=== PATIENT | male | born 1950 | race Caucasian/White ===

== ENCOUNTER → 2020-11-23 08:00 | Outpatient (REF) | payer MEDICARE, SELFPAY ==
--- NOTE | 2020-11-23 08:30 | CA_ITS ---
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 Normal LV systolic and diastolic function 2. Mildly dilated left atrium 3. Normal cardiac valvular Doppler 4. Normal RV systolic pressure 5. No pericardial effusion Findings Left Ventricle Normal left ventricular size, thickness, and systolic function. The visually estimated ejection fraction is between 60-65%. Spectral Doppler is indicative of a normal filling pattern. Right Ventricle Normal right ventricular cavity size and systolic function. Atria The left atrium is mildly dilated. There is lipomatous hypertrophy of the interatrial septum. There is no evidence of interatrial shunt. The right atrium is normal in size. Aortic Valve There is mild calcification of the aortic valve. There is no aortic valve stenosis. There is no aortic valve regurgitation. Mitral Valve There is mild anterior and posterior mitral leaflet thickening. There is mild mitral annular calcification. There is trace mitral valve regurgitation. There is no mitral valve stenosis. Pulmonic Valve The pulmonic valve was not well visualized. Tricuspid Valve Likely normal tricuspid valve structure and function. There is mild tricuspid valve regurgitation. The right ventricular systolic pressure is normal. The right ventricular systolic pressure is 29 mmHg. Normal right atrial pressure. There is no evidence of pulmonary hypertension. Great Vessels All visible segments of the aorta are normal in size. The pulmonary artery was not well visualized. Venous The inferior vena cava is normal in size and collapses greater than 50% with inspiration. Pericardium/Pleural There is no evidence of pericardial effusion. Prior Study Comparison No significant change compared to prior study dated: 06/10/2019. Measurements 2D Linear Measurements IVSd: 1.01 0.6-0.9/0.6-1.0 cm LVIDd: 5.15 3.9-5.3/4.2-5.9 cm LVIDd Index: 2.42 2.4-3.2/2.2-3.1 cm/m2 LVIDs: 3.86 2.0-3.6 cm LVPWd: 1.01 0.7-1.1 cm Ao Root: 3.00 2.1-3.5 cm LA Diam: 3.90 2.7-3.8/3.0-4.0 cm LAIDs Index: 1.83 1.5-2.3 cm/m2 LV Mass: 241.29 67-162/88-224 g LV Mass Index: 113.28 43-95/49-115 g/m2 LVOT Diam: 2.00 3.0+(-)1.3 cm 2D Systolic Function EF 4C: 64.90 >55% EF 2C: 64.10 >55% EF BiP: 64.10 >55% Mitral Valve MV Pk E: 0.85 MV PK A: 0.64 MV Decel Time: 409.00 E/A: 1.30 E'Lateral: 11.30 E'Medial: 8.05 E/E' Med: 10.50 E/E' Lat: 7.50 PHT: 120.00 MVA PHT: 1.83 Decel [place]: 2.07 Aortic Valve AoV Pk Abbe: 1.68 AoV Mn Abbe: 1.14 AoV VTI: 0.43 AoV Pk Grad: 11.00 Aov Mn Grad: 6.00 NIDHI Cont.VTI: 2.12 LVOT LVOT Pk Abbe: 1.15 LVOT Mn Abbe: 0.75 LVOT VTI: 0.29 LVOT Pk Grad: 5.00 LVOT Mn Grad: 3.00 LVOT Diam: 2.00 LVOT Area: 3.14 Diastolic Function MV Pk E: 0.85 MV Pk A: 0.64 E/A: 1.30 E'Medial: 8.05 E/E' Med: 10.50 E' Laterial: 11.30 E/E' Lat: 7.50 Tricuspid Valve TR Pk Abbe: 2.31 TR Pk Grad: 21.00 RA Press: 8.00 RVSP: 29.00 Great Vessels Aorta Ao Root-2D: 3.00 2.0-3.7 cm Ao Asc: 3.20 2.1-3.4 cm Ao Arch: 2.50 Updated in Other Vendor System with Status of Final Navid Babb MD electronically signed on 11/24/2020 9:19:43 AM with status of Final
== END ==
LOC: HO.CARD 08:00
PROVIDERS: Visit Provider Internal Medicine
DX: I20.8 Other forms of angina pectoris (principal); I35.9 Nonrheumatic aortic valve disorder, unspecified; Z95.5 Presence of coronary angioplasty implant and graft
CPT/HCPCS: 93306

== ENCOUNTER → 2020-12-10 07:56 | Outpatient (BNVA) | payer MEDICARE, SELFPAY | PROVIDERS: Visit Provider Internal Medicine | DX: I25.10 Atherosclerotic heart disease of native coronary artery without angina pectoris (principal); I10 Essential (primary) hypertension; R00.1 Bradycardia, unspecified; E78.5 Hyperlipidemia, unspecified | CPT/HCPCS: 93005; 99212 ==

== ENCOUNTER 2021-02-11 10:17 | Outpatient (REF) | payer MEDICARE, SELFPAY ==
[2021-02-11 10:21] LABS: MANUAL DIFF FLAG NO
[2021-02-11 10:49] LABS: Basophils Percent Auto 0.4 % (0-2); Eosinophils Absolute Auto 0.3 X10*3/uL (0.0-0.4); Eosinophils Percent Auto 3.4 % (0-4); Hemoglobin 14.9 g/dl (14.0-18.0); Imm Gran Abs Auto 0.01 X10*3/uL (0.00-0.03); Imm Gran Pct Auto 0.1 % (0.0-0.4); Lymphocytes Absolute Auto 2.8 X10*3/uL (1.2-4.9); Lymphocytes Percent Auto 33.5 % (20-40); Mean Corpuscular HGB Conc 33.1 g/dl (31.0-36.0); Mean Corpuscular Hemoglobin 30.8 pg (27.0-33.0); Mean Platelet Volume 10.8 fL (9.4-12.4); Monocytes Percent Auto 11.7 % (2-11); Neutrophils Absolute Auto 4.3 X10*3/uL (2.0-8.3); Neutrophils Percent Auto 50.9 % (45-73); Platelet Count 178 X10*3/uL (160-400); Red Blood Count 4.84 X10*6/uL (4.60-5.80); Red Cell Distribution Width 13.5 % (11.0-16.0); White Blood Count 8.4 X10*3/uL (4.8-10.8)
[2021-02-11 11:24] LABS: Alanine Aminotransferase 26 U/L (0-40); Albumin Level 3.9 g/dL (3.5-5.0); Alkaline Phosphatase 102 U/L (39-117); Anion Gap 13 (12-20); Aspartate Amino Transferase 21 U/L (5-37); Bilirubin Total 1.6 mg/dL (0.0-1.0); Blood Urea Nitrogen 18 mg/dL (9-16); Calcium 8.5 mg/dL (8.4-10.2); Carbon Dioxide 25 mmol/L (22-29); Chloride 108 mmol/L (96-108); Cholesterol 134 mg/dL; Estimated Glomerular Filt Rate > 60; Glucose Random 99 mg/dL (60-115); HDL Cholesterol 43 mg/dL; LDL Cholesterol Calculated 76 mg/dl; Potassium 4.2 mmol/L (3.3-5.1); Sodium 142 mmol/L (135-145); Total Protein 6.3 g/dL (6.5-8.0); Triglycerides 78 mg/dL
[2021-02-11 11:46] LABS: Prostate Specific Antigen 0.23 ng/mL (<0.05-4.0); Thyroid Stimulating Hormone 1.94 uIU/mL (0.32-4.0)
[2021-02-11 14:28] LABS: Glucose Urine UA NEG (NEG); Leukocyte Esterase Urine NEG (NEG); Nitrite Urine NEG (NEG); Urine Blood NEG (NEG); Urine Ketones NEG (NEG); Urine Protein NEG (NEG-TRACE)
[2021-02-11 14:43] LABS: Appearance Urine CLEAR; Color Urine YELLOW
== END 2021-02-11 10:18 | disposition home or self-care (01) ==
LOC: HO.LNP 10:17
PROVIDERS: Visit Provider Internal Medicine
DX: Z00.00 Encounter for general adult medical examination without abnormal findings (principal); Z12.5 Encounter for screening for malignant neoplasm of prostate; E78.00 Pure hypercholesterolemia, unspecified; N52.01 Erectile dysfunction due to arterial insufficiency; Z95.5 Presence of coronary angioplasty implant and graft
CPT/HCPCS: 80053; 80061; 81003; 84153; 84443; 85025

== ENCOUNTER → 2021-02-23 13:04 | Outpatient (BNVA) | payer MEDICARE, SELFPAY | PROVIDERS: Visit Provider Internal Medicine | DX: I25.10 Atherosclerotic heart disease of native coronary artery without angina pectoris (principal); I10 Essential (primary) hypertension; R00.1 Bradycardia, unspecified; E78.5 Hyperlipidemia, unspecified; N53.9 Unspecified male sexual dysfunction | CPT/HCPCS: Q3014 ==

== ENCOUNTER 2021-06-03 10:17 | Outpatient (REF) | payer MEDICARE, SELFPAY ==
[2021-06-03 10:21] LABS: MANUAL DIFF FLAG NO
[2021-06-03 10:49] LABS: Basophils Percent Auto 0.2 % (0-2); Eosinophils Absolute Auto 0.3 X10*3/uL (0.0-0.4); Eosinophils Percent Auto 2.8 % (0-4); Hematocrit 45.7 % (42-52); Hemoglobin 14.9 g/dl (14.0-18.0); Imm Gran Abs Auto 0.01 X10*3/uL (0.00-0.03); Imm Gran Pct Auto 0.1 % (0.0-0.4); Lymphocytes Absolute Auto 3.8 X10*3/uL (1.2-4.9); Lymphocytes Percent Auto 41.1 % (20-40); Mean Corpuscular HGB Conc 32.6 g/dl (31.0-36.0); Mean Corpuscular Hemoglobin 30.5 pg (27.0-33.0); Mean Corpuscular Volume 93.5 fL (80-98); Mean Platelet Volume 10.4 fL (9.4-12.4); Monocytes Percent Auto 10.9 % (2-11); Neutrophils Absolute Auto 4.1 X10*3/uL (2.0-8.3); Neutrophils Percent Auto 44.9 % (45-73); Platelet Count 180 X10*3/uL (160-400); Red Blood Count 4.89 X10*6/uL (4.60-5.80); Red Cell Distribution Width 13.7 % (11.0-16.0); White Blood Count 9.1 X10*3/uL (4.8-10.8)
[2021-06-03 11:00] LABS: Alanine Aminotransferase 16 U/L (0-40); Alkaline Phosphatase 112 U/L (39-117); Anion Gap 10 (12-20); Aspartate Amino Transferase 19 U/L (5-37); Bilirubin Total 1.5 mg/dL (0.0-1.0); Blood Urea Nitrogen 19 mg/dL (9-16); Calcium 9.1 mg/dL (8.4-10.2); Carbon Dioxide 28 mmol/L (22-29); Chloride 106 mmol/L (96-108); Cholesterol 162 mg/dL; Estimated Glomerular Filt Rate > 60; Glucose Fasting 107 mg/dL (60-99); HDL Cholesterol 44 mg/dL; LDL Cholesterol Calculated 93 mg/dl; Potassium 4.3 mmol/L (3.3-5.1); Sodium 140 mmol/L (135-145); Total Protein 6.5 g/dL (6.5-8.0); Triglycerides 126 mg/dL
[2021-06-03 11:20] LABS: PSA,Total (Free>4and<10) 0.26 ng/mL (0.00-4.00)
[2021-06-03 11:49] LABS: Reflex LDLD? No
== END 2021-06-03 10:18 | disposition home or self-care (01) ==
LOC: HO.LNP 10:17
PROVIDERS: Visit Provider Internal Medicine
DX: Z00.00 Encounter for general adult medical examination without abnormal findings (principal); Z12.5 Encounter for screening for malignant neoplasm of prostate; E78.00 Pure hypercholesterolemia, unspecified
CPT/HCPCS: 80053; 80061; 84153; 85025

== ENCOUNTER 2021-06-08 10:31 | Outpatient (REF) | payer MEDICARE, SELFPAY ==
[2021-06-08 11:05] LABS: Glucose Urine UA NEG (NEG); Leukocyte Esterase Urine NEG (NEG); Nitrite Urine NEG (NEG); Specific Gravity - Urine 1.015 (1.005-1.025); Urine Blood NEG (NEG); Urine Ketones NEG (NEG); Urine Protein NEG (NEG-TRACE)
[2021-06-08 11:11] LABS: Appearance Urine CLEAR; Color Urine YELLOW
== END 2021-06-08 10:32 | disposition home or self-care (01) ==
LOC: HO.LNP 10:31
PROVIDERS: Visit Provider Internal Medicine
DX: Z00.00 Encounter for general adult medical examination without abnormal findings (principal); E78.00 Pure hypercholesterolemia, unspecified
CPT/HCPCS: 81003

== ENCOUNTER → 2021-06-16 08:07 | Outpatient (BNVA) | payer MEDICARE, SELFPAY | PROVIDERS: Referring Provider Internal Medicine; Visit Provider Internal Medicine | DX: I25.10 Atherosclerotic heart disease of native coronary artery without angina pectoris (principal); I10 Essential (primary) hypertension; E78.5 Hyperlipidemia, unspecified; R00.1 Bradycardia, unspecified | CPT/HCPCS: 99212 ==

== ENCOUNTER 2021-09-18 17:41 | Emergency (ER) | payer MEDICARE, SELFPAY ==
--- NOTE | ~2021-09-18 | XR_ITS ---
EXAMINATION: XR RIBS, RIGHT CLINICAL INFORMATION: Fall. COMPARISON: CTA of the chest dated from 02/08/2020. TECHNIQUE: 3 views of the right ribs were obtained. FINDINGS: Lungs are clear. No consolidation, pneumothorax, or pleural effusion. The cardiomediastinal silhouette and pulmonary vasculature are normal. Mildly displaced rib fracture in the posterolateral aspect of the right 9th rib. Chronic appearing right-sided eighth and 10th rib fractures. XR/XR ribs RT min 3V w CXR1V IMPRESSION: Mildly displaced rib fracture in the right ninth rib of uncertain age. Correlate for tenderness at this site. Additional right-sided rib fractures involving the eighth and 10th ribs demonstrate callus formation suggesting a subacute to chronic age.
[2021-09-18 17:45] VITALS: BP 149/82; PULSE 81; RESP 19; TEMP 36.6; O2SAT 97; BMI 31.0
--- NOTE | 2021-09-18 19:50 | ED_ITS ---
HPI - Fall General Chief Complaint: Fall Stated Complaint: Fall Time Seen by Provider: 09/18/21 19:42 Source: patient Mode of arrival: ambulatory Limitations: no limitations History of Present Illness HPI Narrative: Patient comes emergency room complaining of rib pain. Approximately 8 hours ago, patient was hiking, states he fell backwards, rolled over a few drugs. Patient was able to walk down the hill, drove couple of hours from [place], came to the emergency room. Patient states that he did not hit his head, did not lose consciousness, patient is not on blood thinners. Patient denies chest pain or shortness of breath, nonlocalized pain. Related Data Home Medications Medication Instructions Recorded Confirmed aspirin 81 mg tablet,delayed 81 mg PO DAILY 12/10/20 06/16/21 release nitroglycerin 0.4 mg sublingual 0.4 mg SUBLINGUAL Q5M PRN 02/23/21 06/16/21 tablet Previous Rx's Medication Instructions Recorded isosorbide mononitrate 30 mg 30 mg PO DAILY 90 Days #90 tab 01/27/21 tablet,extended release 24 hr atorvastatin 80 mg tablet 80 mg PO DAILY 90 Days #90 tab 07/20/21 metoprolol succinate 25 mg 25 mg PO DAILY 90 Days #90 tab 07/20/21 tablet,extended release 24 hr oxycodone 5 mg tablet 5 mg PO TID PRN #10 tab 09/18/21 Allergies Allergy/AdvReac Type Severity Reaction Status Date / Time Sulfa (Sulfonamide Allergy Unknown HIVES Verified 06/16/21 08:20 Antibiotics) [SULFA (SULFONAMIDE ANTIBIOTICS)] Review of Systems Review of Systems: Constitutional : No Weight loss, No Fever, No Chills, No Night Sweats, No Fatigue, No Malaise ENT/Mouth : No Hearing loss, No Ear Pain, No Nasal Congestion, No Sinus Pain, No Hoarseness, No sore throat, No Rhinorrhea, No Swallowing Difficulty Eyes: No Eye Pain, No Swelling, No Redness, No Foreign Body, No Discharge, No Vision Changes Cardiovascular : No Chest Pain, No SOB, No Dyspnea on Exertion, No Orthopnea, No Edema, No Palpitations Respiratory : No Cough, No Sputum, No Wheezing, No Smoke Exposure, No Dyspnea Gastrointestinal : No Nausea, No Vomiting, No Diarrhea, No Constipation, No abdominal Pain, No Hematochezia, No Melena Genitourinary : no irregular bleeding, No Dysuria, No Urinary Frequency, No Hematuria, No Urinary Incontinence, No Urgency, No Flank Pain, No Urinary Flow Changes, No Hesitancy Musculoskeletal : Complaining of rib pain in the right side, No Myalgias, No Joint Swelling Skin : No Skin Lesions, No rash Neuro : No Weakness, No Numbness, No Paresthesias, No Loss of Consciousness, No Dizziness, No Headache Psych : No Anxiety/Panic, No Depression, No SI/HI/AH/VH, No Social Issues, Heme/Lymph: No Bruising, No Bleeding,No Lymphadenopathy Endocrine : No Polyuria, No Polydipsia, No Temperature Intolerance [facility] Past Medical History Medical History Atherosclerotic cardiovascular disease Coronary arteriosclerosis Essential hypertension Other and unspecified hyperlipidemia Sinus bradycardia Surgical History History of appendectomy History of cardiac catheterization (~01/03/20) History of cholecystectomy History of tonsillectomy Family History Family History Father No problems noted. Mother No problems noted. Social History Social History (Updated 06/16/21 @ 08:31 by BRANDYN Lara) Patient Tobacco Use Status: Never used Tobacco Advance Directives: No Advance Directives Information Provided: No Physical Exam Vital Signs: Vital Signs: Last Vital Signs Temp 98 F 09/18/21 17:45 Pulse 81 09/18/21 17:45 Resp 19 09/18/21 17:45 BP 149/82 H 09/18/21 17:45 Pulse Ox 97 09/18/21 17:45 Body Mass Index 31.0 Const: Other: Appearance: Alert. Oriented X3. No acute distress. Eyes: Pupils equal, round and reactive to light. ENT: Pharynx normal. Neck: Normal inspection. Neck supple. No lymph nodes noted. No crepitus CVS: Normal heart rate and rhythm. Pulses normal. Normal S1 and S2 Respiratory: No respiratory distress. Breath sounds normal. No Wheezing. No rales Abdomen: Soft and nontender. No rigidity. No distention. Back lower rib pain on the right side and flank side Skin: Skin warm and dry. Normal skin color. Normal skin turgor. Extremities: No lower extremity edema. No lower extremity edema. No Lacerations. No Rash Neuro: Oriented X 3. No motor deficit. No sensory deficit. Moving all exter mities. No slurred speech. Course Course Course Narrative: I discussed with the patient that at least he has 1 new rib fracture, to rib fractures unknown they are new or not. Patient was given 1 dose of oxycodone, patient instructed to follow-up with his primary care physician. MDM - Fall Imaging Data Chest x-ray: Radiologist's impression: FINDINGS: Lungs are clear. No consolidation, pneumothorax, or pleural effusion. The cardiomediastinal silhouette and pulmonary vasculature are normal. Mildly displaced rib fracture in the posterolateral aspect of the right 9th rib. Chronic appearing right-sided eighth and 10th rib fractures. XR/XR ribs RT min 3V w CXR1V IMPRESSION: Mildly displaced rib fracture in the right ninth rib of uncertain age. Correlate for tenderness at this site. Additional right-sided rib fractures involving the eighth and 10th ribs demonstrate callus formation suggesting a subacute to chronic age. ? Discharge Plan Discharge Clinical Impression: Fracture, ribs Qualifiers: Encounter type: initial encounter Fracture type: closed Laterality: right Qualified Code(s): S22.41XA - Multiple fractures of ribs, right side, initial encounter for closed fracture Patient Disposition: Home, Self-Care Instructions: Rib Fracture (ED) Additional Instructions: Please follow-up with your primary care physician tomorrow. If you have any worsening or new symptoms, please return to the emergency room or call 911 Prescriptions: New oxycodone 5 mg tablet 5 mg PO TID PRN (Reason: pain) Qty: 10 RF: 0 No Action isosorbide mononitrate 30 mg tablet extended release 24 hr 30 mg PO DAILY 90 Days Qty: 90 RF: 3 atorvastatin 80 mg tablet 80 mg PO DAILY 90 Days Qty: 90 RF: 2 metoprolol succinate 25 mg tablet extended release 24 hr 25 mg PO DAILY 90 Days Qty: 90 RF: 3 aspirin 81 mg tablet,delayed release (DR/EC) 81 mg PO DAILY RF: 0 nitroglycerin 0.4 mg tablet, sublingual 0.4 mg sublingual Q5M PRNRF: 0
[2021-09-18] MEDS: oxyCODONE HCl Immed Release 5 MG TABLET PO (19:55)
== END 2021-09-18 20:08 | disposition home or self-care (01) ==
PROVIDERS: Emergency Provider Emergency Medicine; PCP Internal Medicine
DX: S22.41XA Multiple fractures of ribs, right side, initial encounter for closed fracture (principal); R07.81 Pleurodynia; W17.81XA Fall down embankment (hill), initial encounter; Y93.01 Activity, walking, marching and hiking; Y92.821 Forest as the place of occurrence of the external cause; Y99.9 Unspecified external cause status; Z79.82 Long term (current) use of aspirin; Z79.899 Other long term (current) drug therapy
CPT/HCPCS: 71101; 99283

== ENCOUNTER 2021-09-28 11:00 | Outpatient (REF) | payer MEDICARE, SELFPAY ==
--- NOTE | ~2021-09-28 | XR_ITS ---
EXAMINATION: XR RIBS, RIGHT CLINICAL INFORMATION: Closed fracture of right ribs. COMPARISON: Right RIBS 09/18/2021 TECHNIQUE: Frontal view of chest. 3 oblique views of the right ribs. FINDINGS: Lungs are clear. No consolidation, pneumothorax, or pleural effusion. The cardiomediastinal silhouette and pulmonary vasculature are normal. Displaced fracture of the right ninth rib was seen on the prior study of 09/18/2021. This fracture is healing. There is osseous callus formation around the fracture and partial endosteal union. There is no new displaced fracture. There are old healed fractures of the anterior right sixth, seventh, eighth and 10th ribs Surgical clips at the right quadrant of abdomen. Multilevel degenerative spondylosis spine. Spur of the inferior right glenoid at the glenohumeral joint of the shoulder. XR/XR ribs RT min 3V w CXR1V IMPRESSION: Healing fracture of the right ninth rib.
== END 2021-09-28 11:01 | disposition home or self-care (01) ==
LOC: HO.XRAY 11:00
PROVIDERS: PCP Internal Medicine; Visit Provider Internal Medicine
DX: S22.41XD Multiple fractures of ribs, right side, subsequent encounter for fracture with routine healing (principal)
CPT/HCPCS: 71101

== ENCOUNTER → 2021-12-27 07:58 | Outpatient (BNVA) | payer MEDICARE, SELFPAY | PROVIDERS: PCP Internal Medicine; Referring Provider Internal Medicine; Visit Provider Internal Medicine | DX: I25.10 Atherosclerotic heart disease of native coronary artery without angina pectoris (principal); I10 Essential (primary) hypertension; R00.1 Bradycardia, unspecified; E78.5 Hyperlipidemia, unspecified | CPT/HCPCS: 93005; 99212 ==

== ENCOUNTER 2022-06-03 10:55 | Outpatient (REF) | payer MEDICARE, SELFPAY ==
[2022-06-03 10:58] LABS: MANUAL DIFF FLAG NO
[2022-06-03 11:05] LABS: Basophils Percent Auto 0.1 % (0-2); Eosinophils Absolute Auto 0.3 X10*3/uL (0.0-0.4); Eosinophils Percent Auto 3.4 % (0-4); Hematocrit 43.9 % (42.0-52.0); Hemoglobin 14.4 g/dl (14.0-18.0); Imm Gran Abs Auto 0.02 X10*3/uL (0.00-0.03); Imm Gran Pct Auto 0.2 % (0.0-0.4); Lymphocytes Absolute Auto 2.8 X10*3/uL (1.2-4.9); Lymphocytes Percent Auto 31.6 % (20-40); Mean Corpuscular HGB Conc 32.8 g/dl (31.0-36.0); Mean Corpuscular Hemoglobin 30.3 pg (27.0-33.0); Mean Corpuscular Volume 92.2 fL (80.0-98.0); Mean Platelet Volume 10.6 fL (9.4-12.4); Monocytes Percent Auto 11.1 % (2-11); Neutrophils Absolute Auto 4.7 x10*3/uL (2.0-8.3); Neutrophils Percent Auto 53.6 % (45-73); Platelet Count 188 X10*3/uL (160-400); Red Blood Count 4.76 X10*6/uL (4.60-5.80); Red Cell Distribution Width 13.5 % (11.0-16.0); White Blood Count 8.8 X10*3/uL (4.8-10.8)
[2022-06-03 11:11] LABS: Appearance Urine CLEAR; Color Urine YELLOW; Glucose Urine UA NEG (NEG); Leukocyte Esterase Urine NEG (NEG); Nitrite Urine NEG (NEG); Specific Gravity - Urine 1.015 (1.005-1.025); Urine Blood NEG (NEG); Urine Ketones NEG (NEG); Urine Protein NEG (NEG-TRACE)
[2022-06-03 11:57] LABS: Alanine Aminotransferase 17 U/L (0-40); Albumin Level 3.9 g/dL (3.5-5.0); Alkaline Phosphatase 104 U/L (39-117); Anion Gap 12 (12-20); Aspartate Amino Transferase 21 U/L (5-37); Bilirubin Total 1.8 mg/dL (0.0-1.0); Blood Urea Nitrogen 18 mg/dL (9-16); Calcium 8.7 mg/dL (8.4-10.2); Carbon Dioxide 26 mmol/L (22-29); Chloride 105 mmol/L (96-108); Cholesterol 152 mg/dL; Estimated Glomerular Filt Rate > 60; Glucose Fasting 99 mg/dL (60-99); HDL Cholesterol 43 mg/dL; LDL Cholesterol Calculated 84 mg/dl; Potassium 4.2 mmol/L (3.3-5.1); Sodium 139 mmol/L (135-145); Total Protein 6.2 g/dL (6.5-8.0); Triglycerides 129 mg/dL
[2022-06-03 12:03] LABS: Amorphous Sediment Urine 3+ /LPF; RBC Urine 0 /HPF (0); Squamous Epithelial Cell Urine 1+ /LPF; WBC Urine 0 /HPF (0-4)
[2022-06-03 12:07] LABS: PSA,Total (Free>4and<10) 0.21 ng/mL (0.00-4.00)
== END 2022-06-03 10:56 | disposition home or self-care (01) ==
LOC: HO.LNP 10:55
PROVIDERS: Visit Provider Internal Medicine
DX: Z00.00 Encounter for general adult medical examination without abnormal findings (principal); E78.00 Pure hypercholesterolemia, unspecified; Z12.5 Encounter for screening for malignant neoplasm of prostate
CPT/HCPCS: 80053; 80061; 81001; 84153; 85025

== ENCOUNTER → 2022-06-27 08:25 | Outpatient (BNVA) | payer MEDICARE, SELFPAY | PROVIDERS: PCP Internal Medicine; Referring Provider Internal Medicine; Visit Provider Internal Medicine | DX: I25.10 Atherosclerotic heart disease of native coronary artery without angina pectoris (principal); R00.1 Bradycardia, unspecified; I10 Essential (primary) hypertension; E78.5 Hyperlipidemia, unspecified; Z79.899 Other long term (current) drug therapy | CPT/HCPCS: 99212 ==

== ENCOUNTER 2022-12-08 11:06 | Outpatient (REF) | payer MEDICARE, SELFPAY ==
[2022-12-08 11:31] LABS: Alanine Aminotransferase 28 U/L (0-40); Albumin Level 3.9 g/dL (3.5-5.0); Alkaline Phosphatase 118 U/L (39-117); Aspartate Amino Transferase 25 U/L (5-37); Bilirubin Direct 0.3 mg/dL (0.0-0.5); Bilirubin Total 1.3 mg/dL (0.0-1.0); Cholesterol 170 mg/dL; HDL Cholesterol 48 mg/dL; LDL Cholesterol Calculated 97 mg/dl; Total Protein 6.3 g/dL (6.5-8.0); Triglycerides 125 mg/dL
[2022-12-08 13:49] LABS: Reflex LDLD? No
== END 2022-12-08 11:07 | disposition home or self-care (01) ==
LOC: HO.LNP 11:06
PROVIDERS: Visit Provider Internal Medicine
DX: E78.00 Pure hypercholesterolemia, unspecified (principal)
CPT/HCPCS: 80061; 80076

== ENCOUNTER → 2022-12-27 08:25 | Outpatient (BNVA) | payer MEDICARE, SELFPAY | PROVIDERS: PCP Internal Medicine; Referring Provider Internal Medicine; Visit Provider Internal Medicine | DX: I25.10 Atherosclerotic heart disease of native coronary artery without angina pectoris (principal); I10 Essential (primary) hypertension; E78.5 Hyperlipidemia, unspecified | CPT/HCPCS: 93005; 99212 ==

== ENCOUNTER 2023-02-14 10:54 | Day surgery (SDC) | payer MEDICARE, SELFPAY ==
[2023-02-14 11:07] VITALS: BMI 31.7
[2023-02-14 11:24] VITALS: BP 155/83; PULSE 65; RESP 15; TEMP 36.6; O2SAT 96
[2023-02-14] MEDS: Lactated Ringers 1,000 ML 50 ML IVCONT (11:27)
--- NOTE | 2023-02-14 11:34 | HO.ANESPROP2 ---
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 Mother No problems noted. Family history of problems with anesthesia: No Surgical History Surgical History (Updated 02/14/23 @ 11:07 by Ingrid Cooper RN) History of appendectomy History of cardiac catheterization (~01/03/20) History of cholecystectomy History of tonsillectomy Hx of mastoidectomy History of Problems with Anesthesia: No Social History Social History (Updated 12/27/22 @ 08:56 by BRANDYN Webber) Alcohol intake: never Patient Tobacco Use Status: Never used Tobacco Use of substances other than those prescribed or required for medical reasons: Yes Substance Use Frequency: Daily Are you DNR?: No Advance Directives: No Advance Directives Information Provided: Yes Meds Allergies Allergy/AdvReac Type Severity Reaction Status Date / Time Sulfa (Sulfonamide Allergy Unknown HIVES Verified 02/14/23 11:07 Antibiotics) [SULFA (SULFONAMIDE ANTIBIOTICS)] Active Medications: Current Medications Lactated Ringer's (Lr) 1,000 mls @ 50 mls/hr IVCONT .Q20H IDA Last Admin: 02/14/23 11:27 Dose: 50 mls/hr Home Medications Medication Instructions Recorded Confirmed Last Taken Type aspirin 81 mg tablet,delayed 81 mg PO DAILY 12/10/20 02/14/23 02/10/23 History release Exam Exam Date and Time: February 14, 2023 1134 Height,Weight and Vital Signs: Height 5 ft 9 in Weight 97.522 kg Last Vital Signs Temp 97.8 F 02/14/23 11:24 Pulse 65 02/14/23 11:24 Resp 15 02/14/23 11:24 BP 155/83 H 02/14/23 11:24 Pulse Ox 96 02/14/23 11:24 O2 Del Method Room Air 02/14/23 11:24 Airway Mallampati Class: II TM Dist: >3cm Neck ROM: Limited Heart: rrr Lungs: cta Assessment and Plan Assessment Anesthesia Assessment: Anesthesia Plan Discussed and Chart Reviewed Final Anesthetic Review Family History of Problems with Anesthesia: No History of Problems with Anesthesia: No NPO: Yes ASA Class: III Final Preanesthetic Review: No Changes in Pt Med Stat, Meds/Allgs Chart Reviewed, Consent Obtained/Reviewed and Anes Risks/Benef Reviewed Patient Risk: Intermediate Procedure Risk: Low Anesthetic Plan Anesthetic Plan: MAC: Disposition: Standard PACU
--- NOTE | 2023-02-14 11:54 | MHC.SHP ---
Pre-Procedural Eval Section A Date of Service: 02/14/23 The patient is an INPATIENT: No Changes since office visit: No Cold of Flu in the past 2 weeks, No New Medical Problems, No Changes in Medication and No Patient answered all questions The History & Physical has been completed within 30 days and I have reviewed it.: Yes Section B Chief Complaint: Screening Allergies: Allergies Allergy/AdvReac Type Severity Reaction Status Date / Time Sulfa (Sulfonamide Allergy Unknown HIVES Verified 02/14/23 11:07 Antibiotics) [SULFA (SULFONAMIDE ANTIBIOTICS)] Plan I have reviewed the history and physical and performed a pertinent physical examination on my patient. No changes have occurred unless specified. Time Spent With Patient Time: Total time managing care of this patient today ____ minutes.
--- NOTE | 2023-02-14 12:23 | P.BOP_ITS ---
Brief Operative Note Date of Service: 02/14/23 Pre-op diagnosis: screening Post-op diagnosis: same Procedure: colonoscopy Surgeon: Stephen Peña Anesthesia: MAC Was an Boiler Room Operator used for this Procedure?: No Estimated blood loss (mL): 0 Pathology: none sent Condition: stable Disposition: PACU
[2023-02-14 12:25] VITALS: BP 93/60; PULSE 73; RESP 16; TEMP 36.6; O2SAT 95
[2023-02-14 12:40] VITALS: BP 137/72; PULSE 60; RESP 16; TEMP 36.5; O2SAT 98
--- NOTE | 2023-02-14 12:54 | OP_ITS ---
DATE OF SERVICE: 02/14/2023 SURGEON: Stephen Peña MD INDICATIONS: Colon cancer screening. PREOPERATIVE DIAGNOSIS: POSTOPERATIVE DIAGNOSIS: PROCEDURE PERFORMED: Colonoscopy to the terminal ileum. ESTIMATED BLOOD LOSS: COMPLICATIONS: ANESTHESIA: Monitored anesthesia care. ASSISTANTS: SPECIMENS: DESCRIPTION OF PROCEDURE: A history and physical was performed. The risks and benefits of the procedure were explained to the patient. Informed consent was obtained. The patient was placed in a left lateral decubitus position. A digital rectal exam was performed and was found to be normal. The Olympus pediatric video colonoscope was introduced into the rectum and advanced to the cecum without difficulty. The cecum was identified by transillumination, palpation, and identification of ileocecal valve. Examination was performed. The scope was removed. He tolerated the procedure well and was returned to recovery area in stable condition. FINDINGS: The terminal ileum was examined and appeared normal. The visualized colonic mucosa was normal. The quality of the prep was good. No polyps were identified. Retroflexed examination showed some small internal hemorrhoids. IMPRESSION: Normal screening colonoscopy. RECOMMENDATION: 1. Follow up as needed. 2. Repeat colonoscopy could be considered in 10 years, but it is optional based on age. MD CONSTANZA Charles/ANJALI / [id number]
== END 2023-02-14 13:53 | disposition home or self-care (01) ==
PROVIDERS: PCP Internal Medicine; Visit Provider Internal Medicine Gastroenterology
PROC: 0DJD8ZZ Inspection of Lower Intestinal Tract, Via Natural or Artificial Opening Endoscopic (ICD-10-PCS; CPT 45378; principal; 2023-02-14 12:00)
DX: Z12.11 Encounter for screening for malignant neoplasm of colon (principal); K64.8 Other hemorrhoids; I25.10 Atherosclerotic heart disease of native coronary artery without angina pectoris; Z95.5 Presence of coronary angioplasty implant and graft; E78.00 Pure hypercholesterolemia, unspecified; R00.1 Bradycardia, unspecified; Z79.899 Other long term (current) drug therapy; Z79.82 Long term (current) use of aspirin; I10 Essential (primary) hypertension
CPT/HCPCS: G0121

== ENCOUNTER 2023-06-06 11:06 | Outpatient (REF) | payer MEDICARE, SELFPAY ==
[2023-06-06 11:09] LABS: MANUAL DIFF FLAG NO
[2023-06-06 11:13] LABS: Basophils Percent Auto 0.2 % (0-2); Eosinophils Absolute Auto 0.3 X10*3/uL (0.0-0.4); Eosinophils Percent Auto 3.5 % (0-4); Hematocrit 47.1 % (42.0-52.0); Hemoglobin 15.4 g/dl (14.0-18.0); Imm Gran Abs Auto 0.02 X10*3/uL (0.00-0.03); Imm Gran Pct Auto 0.2 % (0.0-0.4); Lymphocytes Percent Auto 33.9 % (20-40); Mean Corpuscular HGB Conc 32.7 g/dl (31.0-36.0); Mean Corpuscular Hemoglobin 30.7 pg (27.0-33.0); Mean Corpuscular Volume 93.8 fL (80.0-98.0); Mean Platelet Volume 10.8 fL (9.4-12.4); Monocytes Absolute Auto 0.9 X10*3/uL (0.1-1.2); Monocytes Percent Auto 10.3 % (2-11); Neutrophils Absolute Auto 4.6 x10*3/uL (2.0-8.3); Neutrophils Percent Auto 51.9 % (45-73); Platelet Count 186 X10*3/uL (160-400); Red Blood Count 5.02 X10*6/uL (4.60-5.80); Red Cell Distribution Width 13.4 % (11.0-16.0); White Blood Count 8.8 X10*3/uL (4.8-10.8)
[2023-06-06 11:14] LABS: Appearance Urine Clear; Color Urine Yellow; Glucose Urine UA Negative (Negative); Leukocyte Esterase Urine Negative (Negative); Nitrite Urine Negative (Negative); Urine Blood Negative (Negative); Urine Ketones Negative (Negative); Urine Protein Negative (Neg-Trace)
[2023-06-06 11:16] LABS: Bacteria Urine None Seen (None Seen); Hyaline Casts Urine 0-2 /LPF (0-2); RBC Urine 0-2 /HPF (0-2); Squamous Epithelial Cell Urine 0-2 /HPF (0-2); WBC Urine 0-5 /HPF (0-5)
[2023-06-06 11:30] LABS: Alanine Aminotransferase 23 U/L (0-40); Albumin Level 3.8 g/dL (3.5-5.0); Alkaline Phosphatase 95 U/L (39-117); Anion Gap 9 (12-20); Aspartate Amino Transferase 28 U/L (5-37); Bilirubin Total 1.2 mg/dL (0.0-1.0); Blood Urea Nitrogen 17 mg/dL (9-16); Calcium 9.2 mg/dL (8.4-10.2); Carbon Dioxide 28 mmol/L (22-29); Chloride 109 mmol/L (96-108); Cholesterol 132 mg/dL; Estimated Glomerular Filt Rate > 60; Glucose Fasting 119 mg/dL (60-99); HDL Cholesterol 42 mg/dL; LDL Cholesterol Calculated 74 mg/dl; Potassium 4.4 mmol/L (3.3-5.1); Sodium 142 mmol/L (135-145); Total Protein 6.5 g/dL (6.5-8.0); Triglycerides 83 mg/dL
[2023-06-06 11:49] LABS: PSA,Total (Free>4and<10) 0.23 ng/mL (0.00-4.00)
== END 2023-06-06 11:07 | disposition home or self-care (01) ==
LOC: HO.LNP 11:06
PROVIDERS: Visit Provider Internal Medicine
DX: Z00.00 Encounter for general adult medical examination without abnormal findings (principal); Z12.5 Encounter for screening for malignant neoplasm of prostate; E78.00 Pure hypercholesterolemia, unspecified
CPT/HCPCS: 80053; 80061; 81001; 84153; 85025

== ENCOUNTER 2023-12-15 11:04 | Outpatient (REF) | payer MEDICARE, SELFPAY ==
[2023-12-15 11:26] LABS: Alanine Aminotransferase 23 U/L (0-40); Albumin Level 3.8 g/dL (3.5-5.0); Alkaline Phosphatase 90 U/L (39-117); Aspartate Amino Transferase 27 U/L (5-37); Bilirubin Direct 0.4 mg/dL (0.0-0.5); Bilirubin Total 1.1 mg/dL (0.0-1.0); Cholesterol 126 mg/dL (<200); HDL Cholesterol 43 mg/dL (>40); LDL Cholesterol Calculated 66 mg/dL (<100); Total Protein 6.7 g/dL (6.5-8.0); Triglycerides 87 mg/dL (<150)
[2023-12-15 11:42] LABS: Reflex LDLD? No
== END 2023-12-15 11:05 | disposition home or self-care (01) ==
LOC: HO.LNP 11:04
PROVIDERS: Visit Provider Internal Medicine
DX: E78.00 Pure hypercholesterolemia, unspecified (principal)
CPT/HCPCS: 80061; 80076

== ENCOUNTER 2024-01-04 08:27 | Outpatient (AMB) | payer MEDICARE, SELFPAY ==
--- NOTE | 2024-01-04 08:43 | A.OFFVIS_ITS ---
Intake Vital Signs 01/04/24 08:44 Height 5 ft 9 in Weight 222 lb 3.615 oz BMI 32.8 BP 110/62 Blood Pressure Location Lt brachial Position Sitting Pulse 54 Pulse Source Pulse Oximeter Pulse Oximetry (%) 96 Oxygen Delivery Method Room Air Intake Visit Reasons: 1 year follow up Intake Note: Pt presents to the office today for a 1 year follow up with EKG Allergies Sulfa (Sulfonamide Antibiotics) [SULFA (SULFONAMIDE ANTIBIOTICS)] Allergy (Unknown, Verified 01/04/24 08:46) HIVES Medication List - Last Reconciled 01/04/24 by Yg Manuel MD aspirin 81 mg PO DAILY atorvastatin 80 mg PO DAILY 90 days ezetimibe 10 mg PO DAILY isosorbide mononitrate ER 30 mg PO DAILY 90 days metoprolol succinate ER 25 mg PO DAILY 90 days HPI HPI Comments History of Present Illness Details Gee returns for follow up regarding coronary artery disease. History of LAD stenting. Per patient, he is doing quite well. No issues like angina or shortness of breath or in fact any cardiac symptoms at all. He states he is feeling great. [facility] Medical History Elevated cholesterol Sinus bradycardia Other and unspecified hyperlipidemia Essential hypertension Atherosclerotic cardiovascular disease Coronary arteriosclerosis Surgical History Hx of mastoidectomy History of cholecystectomy History of appendectomy History of tonsillectomy History of cardiac catheterization (~01/03/20) Family History Father No problems noted. Mother No problems noted. Social History Alcohol intake: never Patient Tobacco Use Status: Never used Tobacco Review of Systems Const All systems reviewed & are unremarkable except as noted in HPI and below Reports as per HPI and Reports no additional complaints Eyes Reports as per HPI and Denies no additional complaints ENT Denies no additional complaints and Reports as per HPI Card Denies as per HPI, Denies no additional complaints, Denies acrocyanosis, Denies chest pain, Denies chest pain at rest, Denies chest pain with activity, Denies diaphoresis, Denies syncope, Denies rapid heart rate, Denies pedal edema, Denies edema, Denies irregular heart rhythm, Denies claudication, Denies leg ulcers, Denies leg edema, Denies lightheadedness, Denies radiating jaw, neck or arm pain, Denies palpitations, Denies dyspnea, Denies dyspnea on exertion, Denies orthopnea, Denies paroxysmal nocturnal dyspnea, Denies slow heart rate and Denies other Resp Denies dyspnea and Denies dyspnea on exertion GI Reports as per HPI and Denies no additional complaints Reports no additional complaints and Reports as per HPI Musc Reports no additional complaints and Reports as per HPI Skin/Breast Reports system reviewed and no additional complaints, except as documented Neuro Denies syncope Psych Reports no additional complaints and Reports as per HPI Endo Denies palpitations Colt/Lymph Reports no additional complaints and Reports as per HPI Aller/Immun Reports no additional complaints and Reports as per HPI Physical Exam Vital Signs: Last Vital Signs Pulse 54 01/04/24 08:44 BP 110/62 01/04/24 08:44 Pulse Ox 96 01/04/24 08:44 Oxygen Delivery Method Room Air 01/04/24 08:44 BMI result Body Mass Index 32.8 Const General: comfortable and no acute distress Orientation/consciousness: patient oriented x3 HEENT Other: Unremarkable Head: Yes normal to inspection Neck Neck: Yes normal visual inspection Chest Chest palpation & inspection: normal inspection of the chest Resp Auscultation: clear to auscultation bilaterally Cardio Palpation: normal PMI Heart sounds: S1 normal heart sound present, S2 normal heart sound present, no gallops, no murmurs and no rubs GI Palpation (GI): Soft to palpation Back/Spine/Pelvis Other: unremarkable Skin General skin exam: no rashes or lesions noted Neuro General: patient oriented x3 Extrem General: Yes normal to inspection Psych Mental Status: mental status grossly normal Office Procedures EKG Details: EKG with sinus bradycardia 53/Min; cannot exclude old inferior infarct; [place]. [id number], Complete Assessment & Plan Assessment & Plan (1) Atherosclerotic cardiovascular disease: Code(s): I25.10 - Atherosclerotic heart disease of [place] coronary artery without angina pectoris (2) Essential hypertension: Code(s): I10 - Essential (primary) hypertension (3) Other and unspecified hyperlipidemia: Code(s): E78.5 - Hyperlipidemia, unspecified Plan Cardiac catheterization 12/2019- mid LAD 70% stenosis, IFR positive, status post PCI; prox LAD 50% stenosis; circumflex - mild luminal irregularities; RCA- severe diffuse disease with distal subtotal occlusion and [id number] collaterals to PLV. Ramus - 70% ostial stenosis. Echocardiogram- 12/2020-normal LVEF, 60-65%; no significant valvular findings or other abnormalities. Overall, continue treatment for stable coronary disease. Clinically, completely asymptomatic. Continue aspirin, beta-blockers, nitrates, statins, Zetia. Cholesterol seems well controlled. Blood pressure is also stable. Continue active healthy lifestyle. Follow-up in 1 year. He will call with any interim concerns. Coding Level of Care Code Est Pt Level 4 (16634) Diagnoses Atherosclerotic cardiovascular disease I25.10 Essential hypertension I10 Other and unspecified hyperlipidemia E78.5 CPT Codes EKG - CPT: 14750-[id number], Complete ([id number])
[2024-01-04 08:44] VITALS: BP 110/62; PULSE 54; O2SAT 96; BMI 32.8
== END 2024-01-04 09:10 | disposition home or self-care (01) ==
PROVIDERS: PCP Internal Medicine; Visit Provider Internal Medicine
DX: I25.10 Atherosclerotic heart disease of native coronary artery without angina pectoris (principal); I10 Essential (primary) hypertension; E78.5 Hyperlipidemia, unspecified
CPT/HCPCS: 93010; 99214

== ENCOUNTER → 2024-01-04 08:27 | Outpatient (BNVA) | payer MEDICARE, SELFPAY | PROVIDERS: PCP Internal Medicine; Visit Provider Internal Medicine | DX: I25.10 Atherosclerotic heart disease of native coronary artery without angina pectoris (principal); I10 Essential (primary) hypertension; E78.5 Hyperlipidemia, unspecified | CPT/HCPCS: 93005; 99212 ==

== ENCOUNTER 2024-06-10 10:50 | Outpatient (REF) | payer MEDICARE, SELFPAY ==
[2024-06-10 10:54] LABS: MANUAL DIFF FLAG NO
[2024-06-10 11:45] LABS: Appearance Urine Clear; Basophils Percent Auto 0.3 % (0-2); Color Urine Yellow; Eosinophils Absolute Auto 0.4 X10*3/uL (0.0-0.4); Eosinophils Percent Auto 3.9 % (0-4); Glucose Urine UA Negative (Negative); Hematocrit 45.5 % (42.0-52.0); Hemoglobin 15.1 g/dl (14.0-18.0); Imm Gran Abs Auto 0.01 X10*3/uL (0.00-0.03); Imm Gran Pct Auto 0.1 % (0.0-0.4); Leukocyte Esterase Urine Negative (Negative); Lymphocytes Absolute Auto 3.5 X10*3/uL (1.2-4.9); Lymphocytes Percent Auto 38.3 % (20-40); Mean Corpuscular HGB Conc 33.2 g/dl (31.0-36.0); Mean Corpuscular Hemoglobin 30.9 pg (27.0-33.0); Mean Platelet Volume 11.3 fL (9.4-12.4); Monocytes Percent Auto 10.6 % (2-11); Neutrophils Absolute Auto 4.3 x10*3/uL (2.0-8.3); Neutrophils Percent Auto 46.8 % (45-73); Nitrite Urine Negative (Negative); PH 6.5 (5.0-9.0); Platelet Count 185 X10*3/uL (160-400); Red Blood Count 4.89 X10*6/uL (4.60-5.80); Red Cell Distribution Width 13.6 % (11.0-16.0); Urine Blood Negative (Negative); Urine Ketones Negative (Negative); Urine Protein Negative (Neg-Trace); White Blood Count 9.1 X10*3/uL (4.8-10.8)
[2024-06-10 11:49] LABS: Bacteria Urine None Seen (None Seen); Hyaline Casts Urine 0-2 /LPF (0-2); RBC Urine 0-2 /HPF (0-2); Squamous Epithelial Cell Urine 0-2 /HPF (0-2); WBC Urine 0-5 /HPF (0-5)
[2024-06-10 12:17] LABS: Alanine Aminotransferase 25 U/L (0-40); Alkaline Phosphatase 92 U/L (39-117); Anion Gap 9 (12-20); Aspartate Amino Transferase 28 U/L (5-37); Bilirubin Total 1.9 mg/dL (0.0-1.0); Blood Urea Nitrogen 18 mg/dL (9-16); Calcium 9.4 mg/dL (8.4-10.2); Carbon Dioxide 27 mmol/L (22-29); Chloride 108 mmol/L (96-108); Cholesterol 132 mg/dL (<200); Estimated Glomerular Filt Rate > 60; Glucose Fasting 114 mg/dL (60-99); HDL Cholesterol 46 mg/dL (>40); LDL Cholesterol Calculated 71 mg/dL (<100); PSA,Total (Free>4and<10) 0.37 ng/mL (0.00-4.00); Potassium 4.4 mmol/L (3.3-5.1); Sodium 140 mmol/L (135-145); Total Protein 6.7 g/dL (6.5-8.0); Triglycerides 78 mg/dL (<150)
== END 2024-06-10 10:51 | disposition home or self-care (01) ==
LOC: HO.LNP 10:50
PROVIDERS: Visit Provider Internal Medicine
DX: E78.00 Pure hypercholesterolemia, unspecified (principal); Z12.5 Encounter for screening for malignant neoplasm of prostate
CPT/HCPCS: 80053; 80061; 81001; 84153; 85025

== ENCOUNTER 2024-12-01 18:54 | Emergency (ER) | payer MEDICARE, SELFPAY ==
--- NOTE | ~2024-12-01 | CT_ITS ---
CLINICAL HISTORY: fall CT head without contrast Comparison: None Findings: No intra-axial mass, midline shift, hydrocephalus, or acute hemorrhage. No significant atrophy-like change or white matter disease. The visualized paranasal sinuses and mastoid air cells are normal. Right mastoidectomy changes The orbits are unremarkable. There is no acute fracture. IMPRESSION: 1. No acute intracranial findings specifically, no acute intracranial hemorrhage. This document has been electronically signed by: Radha Robledo MD on 12/01/2024 21:01:12
--- NOTE | ~2024-12-01 | CT_ITS ---
CLINICAL HISTORY: left sided rib pain post fall CT chest without contrast Comparison: None Findings: The heart size is normal. The visualized thyroid and mediastinum are unremarkable. The lungs are clear. The upper abdomen is unremarkable. Acute nondisplaced fracture of the left lateral 6th rib. Chronic healed fractures of the right lateral 6th and 7th ribs. IMPRESSION: Acute nondisplaced fracture of the left lateral 6th rib. Chronic healed fractures of the right lateral 6th and 7th ribs. This document has been electronically signed by: Radha Robledo MD on 12/01/2024 20:58:11
--- NOTE | ~2024-12-01 | CT_ITS ---
CLINICAL HISTORY: fall CT cervical spine without contrast Comparison: None Findings: Normal vertebral body alignment. Moderate multilevel spondylosis with disc space narrowing, endplate sclerosis, osteophytosis, and facet arthropathy. No acute fractures or dislocations. Visualized intracranial contents are unremarkable. Soft tissues of the neck are normal. No consolidation or effusion at the lung apices. IMPRESSION: No acute findings. Moderate multilevel spondylosis. This document has been electronically signed by: Radha Robledo MD on 12/01/2024 20:50:00
[2024-12-01 18:59] VITALS: BP 119/93; PULSE 61; RESP 18; TEMP 37.1; O2SAT 98; BMI 32.5
--- NOTE | 2024-12-01 19:01 | ED_ITS ---
HPI - General Adult General Chief complaint: Fall Stated complaint: fall left side pain Time Seen by Provider: 12/01/24 20:35 Source: patient Mode of arrival: ambulatory Limitations: no limitations History of Present Illness ED Provider: Gina oJrge PA-C HPI narrative: Patient is a 74 year old assigned male at with a history of CAD and HTN presenting to the emergency department today with left sided rib pain after a fall. Patient states that he was walking [place] the [place] when he slipped and fell, landing on his left side. Patient denies any head strike, loss of consciousness, dizziness, lightheadedness, abdominal pain, nausea, vomiting, fever, chills, blurry vision, double vision, loss of vision, chest pain, difficulty breathing, shortness of breath, back pain, night sweats, pain with urination, increased urinary frequency, increased urinary urgency, blood in his urine or stool, syncope or a near syncopal episode, bowel incontinence, bladder incontinence, or any other complaints at this time. Onset (ago): hour(s) Location: left (rib pain) Relieving factors: none Exacerbating factors: none Associated symptoms: denies other symptoms Treatments prior to arrival: none Related Data Home Medications ?Medication ?Instructions ?Recorded ?Confirmed aspirin 81 mg tablet,delayed 81 mg PO DAILY 12/10/20 01/04/24 release Previous Rx's ?Medication ?Instructions ?Recorded atorvastatin 80 mg tablet 80 mg PO DAILY 90 days #90 tabs 07/20/21 ezetimibe 10 mg tablet 10 mg PO DAILY #90 tabs 12/18/23 isosorbide mononitrate 30 mg 30 mg PO DAILY #90 tabs 08/23/24 tablet,extended release 24 hr metoprolol succinate 25 mg 25 mg PO DAILY 90 days #90 tabs 08/23/24 tablet,extended release 24 hr Allergies Allergy/AdvReac Type Severity Reaction Status Date / Time Sulfa (Sulfonamide Allergy Unknown HIVES Verified 12/01/24 19:02 Antibiotics) [SULFA (SULFONAMIDE ANTIBIOTICS)] Review of Systems 2 Constitutional: Constitutional: Reports no additional constitutional complaints, Denies chills, Denies fever(s) and Denies night sweats Eyes: Eyes: Reports no additional eye complaints, Denies blurry vision, Denies change in vision, Denies diplopia, Denies eye discharge, Denies loss of vision and Denies eye pain ENT: Denies dizziness Cardiovascular: Cardiovascular: Reports no additional cardiovascular complaints, Denies chest pain, Denies lightheadedness, Denies Loss of Consciousness and Denies dyspnea Respiratory: Respiratory: Reports no additional respiratory complaints and Denies dyspnea Gastrointestinal: Gastrointestinal: Reports no additional gastrointestinal complaints, Denies abdominal pain, Denies melena, Denies hematochezia, Denies change in bowel habits and Denies change in stool character Genitourinary: Genitourinary: Reports no additional male genitourinary complaints, Denies hematuria, Denies oliguria, Denies difficulty urinating, Denies dysuria, Denies urinary frequency, Denies urinary hesitancy, Denies urinary incontinence and Denies urinary urgency Musculoskeletal: Musculoskeletal: Reports no additional musculoskeletal complaints, Denies numbness and Denies tingling Comments: left sided rib pain Neurologic: Denies dizziness, Denies loss of vision, Denies numbness and Denies tingling Psychiatric: Psychiatric: Reports no additional psychiatric complaints Endocrine: Endocrine: Reports no additional endocrine complaints Hematologic/Lymphatic: Hematologic/Lymphatic: Reports no additional hematologic/lymphatic complaints Allergic/Immunologic: Allergic/Immunologic: Reports no additional allergic/immunologic complaints [facility] Past Medical History Attestation statement: The following information was validated with the patient. Source: old records reviewed and nursing notes reviewed Medical History Elevated cholesterol Sinus bradycardia Other and unspecified hyperlipidemia Essential hypertension Atherosclerotic cardiovascular disease Coronary arteriosclerosis Surgical History Hx of mastoidectomy History of cholecystectomy History of appendectomy History of tonsillectomy History of cardiac catheterization (~01/03/20) Family History Family History Father No problems noted. Mother No problems noted. Social History Social History Alcohol intake: never Patient Tobacco Use Status: Never used Tobacco Advance Directives: No Advance Directives Information Provided: Yes Do you have a plan to hurt others: No Plan Physical Exam ED Vital Signs: Vital Signs - 24 hr 12/01/24 18:59 Temperature 98.7 F Pulse Rate 61 Respiratory Rate 18 Blood Pressure 119/93 H Pulse Oximetry 98 Oxygen Delivery Method Room Air BMI result Body Mass Index 32.5 Const General: cooperative, no acute distress, alert and awake Nutritional Appearance: well nourished Orientation/consciousness: patient oriented x3 Limitations: no limitations HENMT Head: Yes normal to inspection and Yes atraumatic Ears: hearing grossly normal bilaterally and external ears normal General nose exam: Normal external nose present, no nasal discharge noted and no epistaxis Face and sinus: Yes normal facial exam, No abrasion and No laceration Mouth: Normal oral and palatal mucosa present, no drooling and no muffled voice Eyes General: appearance normal, both eyes and all related structures Periorbital: periorbital findings normal Eyelids: Yes eyelids normal Conjunctivae: conjunctivae normal Pupils: Equal, round and reactive pupils present EOM: EOMs intact bilaterally Neck Neck: Yes normal visual inspection, Yes full ROM and Yes no lymphadenopathy Chest Chest palpation & inspection: normal inspection of the chest Resp Effort & Inspection: normal respiratory effort and able to speak in complete sentences GI Inspection: Yes normal to inspection Neuro General: patient oriented x3 and moves all extremities Cranial nerves: Yes Equal, round and reactive pupils present Cognition (Neuro): normal cognition Extrem General: Yes normal to inspection, Yes full ROM and Yes capillary refill normal Psych Appearance: grossly normal Mental Status: mental status grossly normal Affect: normal affect Attitude: cooperative Thought process: Normal thought process present Thought content: Normal thought content present Insight: Good insight present (Psych) Course Course Course Narrative: This is a Rapid Medical Examination (RME) performed by Meredith Arnold PA-C in triage. Full HPI, ROS, assessment and treatment plan per primary provider in the Main ED. 74 yo male hx of CAD and HTN here for eval of left rib pain s/p slip and fall on mud [place] 1300 today. denies head strike or loc. no thinners. on 81 mg aspirin daily. has since had left lateral rib pain, worse w/ breathing and palpation. + satting 98% on RA. Exquisitely tender to palpation of left anterolateral ribs without palpable deformity or crepitus. AOX3. ambulating w/ steady gait. no midline c spine tenderness. Plan: ct head/ c spine/ chest, labs, coags Medical Decision Making Medical Decision Making MDM Narrative: Patient is a 74 year old assigned male at with a history of CAD and HTN presenting to the emergency department today with left sided rib pain after a fall. Patient's physical exam was as noted in the physical exam portion of this note. Patient's blood work was unremarkable. Patient's CT head and c-spine showed no acute process. Patient's chest CT showed a new left lateral 6th rib fracture with old / healed right lateral 6th + 7th rib fxs. I explained my physical exam findings as well as all test results to the patient. I answered all questions asked by the patient. Patient was given an incentive spirometer with instructions on the appropriate way to use it to avoid developing pneumonia. I stressed the importance of the patient taking his medication as directed (either prescribed or as the over the counter packaging recommends). I stressed the importance of the patient following up with his primary care provider. I stressed the importance of the patient returning to the emergency department immediately if his symptoms were to worsen or if he were to develop any dizziness, shortness of breath, difficulty breathing, chest pain, blurry vision, loss of vision, nausea, vomiting, abdominal pain, fever, chills, back pain, or any other complaints. Patient verbalized agreement and understanding with this treatment plan and discharge. Differential Diagnosis Differential Diagnoses: The differential diagnosis associated with the presentation includes Rib fracture Rib contusion Rib pain Fall Admission/Observation Consideration of admission/observation: Escalation of care including admission/observation considered Patient would have been admitted to the hospital had his work up had any findings where hospital admission was appropriate and his clinical presentation warranted hospital admission. Lab Data [facility] Lab Attestation statement: I reviewed the patient's lab results. My interpretation of these results are in the [facility] Rationale portion of this note. 12/01/24 19:09 12/01/24 19:09 Labs: Lab Results 12/01/24 Range/Units 19:09 WBC 11.7 H (4.8-10.8) X10*3/uL RBC 5.34 (4.60-5.80) X10*6/uL Hgb 16.4 (14.0-18.0) g/dl Hct 49.0 (42.0-52.0) % MCV 91.8 (80.0-98.0) fL MCH 30.7 (27.0-33.0) pg MCHC 33.5 (31.0-36.0) g/dl RDW 13.5 (11.0-16.0) % Plt Count 200 (160-400) X10*3/uL MPV 9.5 (9.4-12.4) fL Immature Gran % (Auto) 0.3 (0.0-0.4) % Neut % (Auto) 59.4 (45-73) % Lymph % (Auto) 28.5 (20-40) % [place] % (Auto) 9.4 (2-11) % Eos % (Auto) 2.1 (0-4) % Baso % (Auto) 0.3 (0-2) % Lymph # (Auto) 3.3 (1.2-4.9) X10*3/uL [place] # (Auto) 1.1 (0.1-1.2) X10*3/uL Eos # (Auto) 0.2 (0.0-0.4) X10*3/uL Baso # (Auto) 0.0 (0.0-0.2) X10*3/uL Abs Immat Gran (auto) 0.03 (0.00-0.03) X10*3/uL Absolute Neuts (auto) 6.9 (2.0-8.3) x10*3/uL Absolute Nucleated RBC 0.000 (0.0-0.012) X10*3/uL Nucleated RBC % (auto) 0.0 (0.0-0.2) /100WBC PT 11.7 (10.9-12.4) SEC INR 1.0 (0.9-1.1) Sodium 142 (135-145) mmol/L Potassium 4.3 (3.3-5.1) mmol/L Chloride 108 (96-108) mmol/L Carbon Dioxide 25 (22-29) mmol/L Anion Gap 13 (12-20) BUN 16 (9-16) mg/dL Creatinine 0.81 (0.5-1.4) mg/dL Estim Creat Clear Calc 94.5 Estimated GFR > 60 Random Glucose 105 (60-115) mg/dL Calcium 9.5 (8.4-10.2) mg/dL Total Bilirubin 1.2 H (0.0-1.0) mg/dL AST 35 (5-37) U/L ALT 27 (0-40) U/L Alkaline Phosphatase 117 (39-117) U/L Total Protein 7.8 (6.5-8.0) g/dL Albumin 4.2 (3.5-5.0) g/dL Independent Interpretation I performed an independent interpretation of an: CT Scan Interpretation: My interpretation is in agreement with the radiologist's impression of these imaging studies. L Report Number: [id number]: Total DLP = 4887.19 mGy-cm CLINICAL HISTORY: left sided rib pain post fall CT chest without contrast Comparison: None Findings: The heart size is normal. The visualized thyroid and mediastinum are unremarkable. The lungs are clear. The upper abdomen is unremarkable. Acute nondisplaced fracture of the left lateral 6th rib. Chronic healed fractures of the right lateral 6th and 7th ribs. IMPRESSION: Acute nondisplaced fracture of the left lateral 6th rib. Chronic healed fractures of the right lateral 6th and 7th ribs. This document has been electronically signed by: Radha Robledo MD on 12/01/2024 20:58:11 Dictated By: Radha Robledo MD Signed By: Electronically signed by Radha Robledo MD 12/01/242058 Report Number: [id number]: Total DLP = 997.34 mGy-cm CLINICAL HISTORY: fall CT head without contrast Comparison: None Findings: No intra-axial mass, midline shift, hydrocephalus, or acute hemorrhage. No significant atrophy-like change or white matter disease. The visualized paranasal sinuses and mastoid air cells are normal. Right mastoidectomy changes The orbits are unremarkable. There is no acute fracture. IMPRESSION: 1. No acute intracranial findings specifically, no acute intracranial hemorrhage. This document has been electronically signed by: Radha Robledo MD on 12/01/2024 21:01:12 Dictated By: Radha Robledo MD Signed By: Electronically signed by Radha Robledo MD 01/19/25 2102 CLINICAL HISTORY: fall CT cervical spine without contrast Comparison: None Findings: Normal vertebral body alignment. Moderate multilevel spondylosis with disc space narrowing, endplate sclerosis, osteophytosis, and facet arthropathy. No acute fractures or dislocations. Visualized intracranial contents are unremarkable. Soft tissues of the neck are normal. No consolidation or effusion at the lung apices. IMPRESSION: No acute findings. Moderate multilevel spondylosis. This document has been electronically signed by: Radha Robledo MD on 12/01/2024 20:50:00 Dictated By: Radha Robledo MD Signed By: Electronically signed by Radha Robledo MD 12/01/242050 Radiology Impression Discussion of test interpretation with radiology: I have reviewed the radiologist's reading. Chronic Conditions Patient?s care impacted by: Hypertension Discharge Plan Discharge Clinical Impression: Fracture of rib Patient Disposition: Home, Self-Care Instructions: Rib Fracture (ED) Additional Instructions: Use the incentive spirometer as directed to avoid developing pneumonia. Follow up with your primary care provider. Return to the emergency department immediately if your symptoms worsen or if you develop any dizziness, shortness of breath, difficulty breathing, chest pain, blurry vision, loss of vision, nausea, vomiting, abdominal pain, fever, chills, back pain, or any other complaints. Prescriptions: No Action atorvastatin 80 mg tablet 80 mg PO DAILY 90 Days Qty: 90 2RF ezetimibe 10 mg tablet 10 mg PO DAILY Qty: 90 3RF metoprolol succinate 25 mg tablet extended release 24 hr 25 mg PO DAILY 90 Days Qty: 90 3RF isosorbide mononitrate 30 mg tablet extended release 24 hr 30 mg PO DAILY Qty: 90 3RF aspirin 81 mg tablet,delayed release (DR/EC) 81 mg PO DAILY Referrals: Guillaume Puente MD [Primary Care Provider] - Print Language: [place]an
[2024-12-01 19:15] LABS: MANUAL DIFF FLAG NO
[2024-12-01 19:16] LABS: Basophils Percent Auto 0.3 % (0-2); Eosinophils Absolute Auto 0.2 X10*3/uL (0.0-0.4); Eosinophils Percent Auto 2.1 % (0-4); Hemoglobin 16.4 g/dl (14.0-18.0); Imm Gran Abs Auto 0.03 X10*3/uL (0.00-0.03); Imm Gran Pct Auto 0.3 % (0.0-0.4); Lymphocytes Absolute Auto 3.3 X10*3/uL (1.2-4.9); Lymphocytes Percent Auto 28.5 % (20-40); Mean Corpuscular HGB Conc 33.5 g/dl (31.0-36.0); Mean Corpuscular Hemoglobin 30.7 pg (27.0-33.0); Mean Corpuscular Volume 91.8 fL (80.0-98.0); Mean Platelet Volume 9.5 fL (9.4-12.4); Monocytes Absolute Auto 1.1 X10*3/uL (0.1-1.2); Monocytes Percent Auto 9.4 % (2-11); Neutrophils Absolute Auto 6.9 x10*3/uL (2.0-8.3); Neutrophils Percent Auto 59.4 % (45-73); Platelet Count 200 X10*3/uL (160-400); Red Blood Count 5.34 X10*6/uL (4.60-5.80); Red Cell Distribution Width 13.5 % (11.0-16.0); White Blood Count 11.7 X10*3/uL (4.8-10.8)
[2024-12-01 19:21] LABS: Prothrombin Time 11.7 SEC (10.9-12.4)
[2024-12-01 19:33] LABS: Alanine Aminotransferase 27 U/L (0-40); Albumin Level 4.2 g/dL (3.5-5.0); Alkaline Phosphatase 117 U/L (39-117); Anion Gap 13 (12-20); Aspartate Amino Transferase 35 U/L (5-37); Bilirubin Total 1.2 mg/dL (0.0-1.0); Blood Urea Nitrogen 16 mg/dL (9-16); Calcium 9.5 mg/dL (8.4-10.2); Carbon Dioxide 25 mmol/L (22-29); Chloride 108 mmol/L (96-108); Creatinine Clr Calc Pharmacy 94.5; Estimated Glomerular Filt Rate > 60; Glucose Random 105 mg/dL (60-115); Potassium 4.3 mmol/L (3.3-5.1); Sodium 142 mmol/L (135-145); Total Protein 7.8 g/dL (6.5-8.0)
[2024-12-01] MEDS: Ketorolac Tromethamine 15 MG/ML VIAL IM (21:55)
[2024-12-01 22:02] VITALS: BP 132/75; PULSE 63; RESP 16; TEMP 36.7; O2SAT 96
== END 2024-12-01 22:13 | disposition home or self-care (01) ==
PROVIDERS: Physician Assistant Medical; Emergency Provider Internal Medicine; PCP Internal Medicine
DX: S22.32XA Fracture of one rib, left side, initial encounter for closed fracture (principal); M54.2 Cervicalgia; R51.9 Headache, unspecified; I25.10 Atherosclerotic heart disease of native coronary artery without angina pectoris; R07.1 Chest pain on breathing; R07.81 Pleurodynia; I10 Essential (primary) hypertension; Y93.K1 Activity, walking an animal; W01.0XXA Fall on same level from slipping, tripping and stumbling without subsequent striking against object, initial encounter; Y92.821 Forest as the place of occurrence of the external cause; Y99.8 Other external cause status; Z79.899 Other long term (current) drug therapy
CPT/HCPCS: 36415; 70450; 71250; 72125; 80053; 85025; 85610; 96372; 99284; J1885

== ENCOUNTER → 2024-12-01 19:02 | Outpatient (BNV) | payer MEDICARE, SELFPAY | PROVIDERS: Emergency Provider Internal Medicine; PCP Internal Medicine; Visit Provider Student in an Organized Health Care Education/Training Program | DX: R07.82 Intercostal pain (principal) | CPT/HCPCS: 70450; 71250; 72125 ==

== ENCOUNTER 2024-12-20 10:55 | Outpatient (REF) | payer MEDICARE, SELFPAY ==
[2024-12-20 11:15] LABS: Alanine Aminotransferase 30 U/L (0-40); Albumin Level 3.6 g/dL (3.5-5.0); Alkaline Phosphatase 109 U/L (39-117); Aspartate Amino Transferase 40 U/L (5-37); Bilirubin Direct 0.4 mg/dL (0.0-0.5); Bilirubin Total 1.2 mg/dL (0.0-1.0); Cholesterol 155 mg/dL (<200); HDL Cholesterol 39 mg/dL (>40); LDL Cholesterol Calculated 85 mg/dL (<100); Triglycerides 155 mg/dL (<150)
--- OUTSIDE RECORDS SUMMARY | 2024-12-20 11:59 | XMS_ITS ---
Author Organization [facility] Address [address] [place] [address] Care Team Providers Care Acute Care Registered Nurse Name Role Phone Guillaume Puente MD Primary Care Provider Elmo Lazar Unavailable [phone] Allergies Allergen (clinical drug ingredient) Drug/Non Drug Allergy documented on EMR Reaction Allergy Type Onset Date Status sulfamethoxazole / trimethoprim Bactrim Rash Drug Allergy Active REASON FOR VISIT Wart(s) Medications Medication SIG (Take, Route, Frequency, Duration) Notes Start Date End Date Status Aspirin 81 MG 1 tablet Orally Once a day for 30 day(s) 06/19/2023 Active Isosorbide Mononitrate ER 30 MG TAKE 1 TABLET BY MOUTH DAILY Oral for 90 Days Active Metoprolol Succinate ER 25 MG TAKE 1 TABLET BY MOUTH DAILY Oral for 90 Days Active Ezetimibe 10 MG Oral for 90 Days Active Atorvastatin Calcium 80 MG TAKE 1 TABLET BY MOUTH EVERY DAY Oral for 90 Days Active Social History Tobacco Use: Social History Observation Description Date Details (start date - stop date) Never Smoker NA - NA Tobacco Use/Smoking Question Answer Notes Are you a: nonsmoker Additional Findings: Tobacco Non-User Current no n-smoker Alcohol Screen Question Answer Notes Did you have a drink containing alcohol in the p ast year? No Points 0 Interpretation Negative Tobacco use other than smoking: Question Answer Notes Are you an other tobacco user? No Vital Signs Height 5 ft 8 in in 08/17/2023 Weight 218 lbs 08/17/2023 BMI 33.14 kg/m2 08/17/2023 Encounters Encounter Location Date Provider Diagnosis [facility] [address] [place] [address] 08/17/2023 Elmo Chanel Skin disease L98.9 ; Other viral warts B07.8 and Pain in left foot M79.672 Assessments Encounter Date Diagnosis (ICD Code) Assessment Notes Treatment Notes Treatment Clinical Notes Section Notes 08/17/2023 Skin disease (ICD-10 - L98.9) 08/17/2023 Other viral warts (ICD-10 - B07.8) 08/17/2023 Pain in left foot (ICD-10 - M79.672) Plan Of Treatment Next Appt Details Follow Up: 3 Weeks, Reason: Procedure Notes * Category Sub-Category Detail Notes Wart Treatment Procedure Verrucae(s) were debrided to pin-point bleeding margins with sterile surgical blade (94744), silver nitrate chemocautery applied, recomm. 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 Socorro ramirez.? * ROS:?General/Constitutional:?Nausea?denies.?Vomiting?denies.?Hunger Thirst?denies.?Loss appetite?denies.?Chills?denies.?Fatigue?denies.?Fever?denies.?Night Sweats?denies.?Unexplained weight loss?denies.?Unexplained weight gain?denies.?HEENTM:?Dentures?denies.?Dizziness?denies.?Glasses/contacts?denies.?Retinopathy?de nies.?Blurred/double vision?denies.?TMJ?denies.?Discharge/drainage?denies.?Implants?denies.?Sore throat?denies.?Dental implants?denies.?Hard of hearing ?denies.?Difficulty chewing/swallowing/speaking?denies.?Nose bleeds?denies.?Sore mouth?denies.?Respiratory:?On Oxygen?denies.?Pneumonia/pleurisy?denies.?Bronchitis?denies.?Emphysema?denies.?C oughing?denies.?Cough blood?denies.?Shortness of breath?denies.?Wheezing?denies.?Cardiovascular:?Pacemaker?denies.?MVP?denies.?WPW?denies.?CHF?denies.?Heart attack?denies.?Septal defect?denies.?Rapid beat?denies.?Chest pain ?denies.?Atrial Fib.?denies.?Murmur/Palpitations?denies.?Gastrointestinal:?Hemorrhoids?denies.?Stomach/Abdominal pain?denies.?Dark blood stool?denies.?Irritable bowel ?denies.?Constipation?denies.?Diarrhea?denies.?Hematology:?Swelling?denies.?Clots?denies.?Varicose Veins?denies.?Bruising?denies.?Bleeding problem?denies.?Genitourinary:?Blood urine?denies.?Frequent/Painfu/urination/bladder control?denies.?Kidney stones?denies.?Infection (UTI)?denies.?Nephropathy?denies.?sex trans dis (STD)?denies.?Prostate?denies.?Musculoskeletal:?Hammertoes?denies.?Bunions?denies.?Back Pain?denies.?Muscle Cramps/ Resting?denies.?Muscle cramps / walking?denies.?Generalized aches and pains?denies.?Weakness?denies.?Integ.:?Plaza?denies.?Scars?denies.?Corns/calluses?denies.?Ingrown nails?denies.?Painful nails?denies.?Open Sores?denies.?Rashes?denies.?Neurologic:?Difficulty sleeping?denies.?Brain disorder?denies.?Numbness?denies.?Balance trouble?denies.?Confusion?denies.?Fainting/blackouts?denies.?Tingling?denies.?Tr emors?denies.? * Medical History:? * Surgical History:?tonsillect parker 1954mastoidectomy 1958gall bladder 1998intestinal surgery t 2019 * Hospitalization/Major Diagno stic Procedure:?Denies Past Hospitalization * Family History:?Mother: dece ased, diagnosed with Family history of arthritis.?Father: .? * Social History:?Tobacco Use:?Tobacco Use/Smoking?Are you a:?nonsmoker ?Additional Findings: Tobacco Non-User?Current non-smoker ?Tobacco use other than smoking?Are you an other tobacco user??No ???Drugs/Alcohol:?Drugs?Have you used drugs other than those for medical reasons in the past 12 months??Yes ?Alcohol Screen?Did you have a drink containing alcohol in the past year??No ?Points?0 ?Interpretation?Negative ???Miscellaneous:?no Caffeine. ?no Children. ?Exercise: yes, kayaking, fishing. ?Marital status: . * Medications:?TakingAtorvasta tin Calcium 80 MG Tablet TAKE 1 TABLET BY MOUTH EVERY DAY Oral Ezetimibe 10 MG Tablet Oral Metoprolol Succinate ER 25 MG Tablet Extended Release 24 Hour TAKE 1 TABLET BY MOUTH DAILY Oral Isosorbide Mononitrate ER 30 MG Tablet Extended Release 24 Hour TAKE 1 TABLET BY MOUTH DAILY Oral Aspirin 81 MG Tablet Chewable 1 tablet Orally Once a dayMedication List reviewed and reconciled with the patientTaking Atorvastatin Calcium 80 MG Tablet TAKE 1 TABLET BY MOUTH EVERY DAY Oral Taking Ezetimibe 10 MG Tablet Oral Taking Metoprolol Succinate ER 25 MG Tablet Extended Release 24 Hour TAKE 1 TABLET BY MOUTH DAILY Oral Taking Isosorbide Mononitrate ER 30 MG Tablet Extended Release 24 Hour TAKE 1 TABLET BY MOUTH DAILY Oral Taking Aspirin 81 MG Tablet Chewable 1 tablet Orally Once a dayMedication List reviewed and reconciled with the patient * Allergies:?Bactrim: Rashyes[ Allergies Verified] Objective: * Vitals:?Ht:5 ft 8 in, Wt:218 , BMI:33.14, Shoe size: 9, Ht-cm: 172.72 cm, Wt-k.88 kg. * Examination: ???Dermatologic: ?SKIN FINDINGS:?Skin exam reveals normal texture, elasticity, and tugor. There are no masses. The interspaces are clear.?VERRUCA:? Reveals a Single , multi-loculated , mosaically patterned, round, raised, flat-topped, petechial bleeding papule(s), with cauliflower appearance and interruption of skin lines, pain to lateral compression, and size estimated at __5_ mm diameter, plantar Heel, LEFT.? Assessment: * Assessment: 1.?Skin disease - L98.9 (Ludivina robledo)?2.?Other viral warts - B07.8?3.?Pain in left foot - M79.672? Plan: * Treatment: * Procedures:?Wart Treatment:?Procedure?Verrucae(s) were debrided to pin-point bleeding margins with sterile surgical blade (25990), silver nitrate chemocautery applied, recomm. Wartstick 40 percent Salicylic acid application under occlusion as directed.? * Procedure Codes:?54008 Wart Destruction, 1-14, Modifiers: XS * Follow Up:?3 Weeks * Images: * Sign off status: Completed true * Provider:?Elmo Chanel DPM Date:? 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 There are no masses. The interspaces are clear VERRUCA: Reveals a Single , m ulti-loculated , mosaically patterned, round, raised, flat-topped, petechial bleeding papule(s), with cauliflower appearance and interruption of skin lines, pain to lateral compression, and size estimated at __5_ mm diameter, plantar Heel, LEFT
--- OUTSIDE RECORDS SUMMARY | 2024-12-20 12:00 | XMS_ITS ---
Author Organization [facility] Address [address] [place] [address] Care Team Providers Care Marketing Program Coordinator Name Role Phone Guillaume Puente MD Primary Care Provider Elmo Lazar [phone] REASON FOR VISIT cx 09/07 Encounters Encounter Location Date Provider Diagnosis [facility] [address] [place] [address] 09/04/2023 Elmo Chanel Plan Of Treatment No Information Progress Notes * Mathew MCKEONOB:1950 ([age] yo M)Acc No.[id number]:09/04/2023 Patient:?Gee Mckeon :1950???Age:73 Y???Sex:Male Address:[address] [address] * true * Date:? Generated for Anitai keren/Garret/eTransmitting on:?12/20/2024 11:59 AM EST
--- OUTSIDE RECORDS SUMMARY | 2024-12-20 12:00 | XMS_ITS | Patient Health Record ---
Author Organization Guillaume Puente MD Address [address] [place], [place] [id number] Care Team Providers Care Personal Lines Underwriter Name Role Phone Guillaume Puente Primary Care Provider [phone] Allergies Allergen (clinical drug ingredient) Drug/Non Drug Allergy documented on EMR Reaction Allergy Type Onset Date Status Sulfacet-R hives Drug Allergy Active Results Component Value Reference Range Notes Complete Blood Count Auto Di ff Reviewed date:06/10/2024 12:24:29 PM Interpretation: Performing Lab:[facility], [address] [place] [phone] Notes/Report: White Blood Count 9.1 4.8-10.8 X10*3/uL Red Blood Count 4.89 4.60-5.80 X10*6/uL Hemoglobin 15.1 14.0-18.0 g/dl Hematocrit 45.5 42.0-52.0 % Mean Corpuscular Volume 93.0 80.0-98.0 fL Mean Corpuscular Hemoglobin 30.9 27.0-33.0 pg Mean Corpuscular HGB Conc 33.2 31.0-36.0 g/dl Red Cell Distribution Width 13.6 11.0-16.0 % Platelet Count 185 160-400 X10*3/uL Mean Platelet Volume 11.3 9.4-12.4 fL Neutrophils Percent Auto 46.8 45-73 % Imm Gran Pct Auto 0.1 0.0-0.4 % Lymphocytes Percent Auto 38.3 20-40 % Monocytes Percent Auto 10.6 2-11 % Eosinophils Percent Auto 3.9 0-4 % Basophils Percent Auto 0.3 0-2 % NRBC Pct Auto 0.0 0.0-0.2 /100WBC Neutrophils Absolute Auto 4.3 2.0-8.3 x10*3/u L Imm Gran Abs Auto 0.01 0.00-0.03 X10*3/uL Lymphocytes Absolute Auto 3.5 1.2-4.9 X10*3/u L Monocytes Absolute Auto 1.0 0.1-1.2 X10*3/uL Eosinophils Absolute Auto 0.4 0.0-0.4 X10*3/u L Basophils Absolute Auto 0.0 0.0-0.2 X10*3/uL NRBC Abs Auto 0.000 0.0-0.012 X10*3/uL Comprehensive [place]. Panel Fa Reviewed date:06/10/2024 05:30:06 PM Interpretation: Performing Lab:[facility], [address] [place] [phone] Notes/Report: Sodium 140 135-145 mmol/L Potassium 4.4 3.3-5.1 mmol/L Chloride 108 96-108 mmol/L Carbon Dioxide 27 22-29 mmol/L Anion Gap 9 12-20 Blood Urea Nitrogen 18 9-16 mg/dL Creatinine 0.85 0.5-1.4 mg/dL Estimated Glomerular Filt Rate > 60 NOTE: For -Beninese individuals, multiply the result by 1.210. Chronic Kidney Disease: Estimated GFR < 60 mL/min/1.73m2 Severe Kidney Disease: Estimated GFR < 15 mL/min/1.73m2 Glucose Fasting 114 60-99 mg/dL A fasting glucose from 100-125 mg/dl is considered impaired (pre-diabetes). Calcium 9.4 8.4-10.2 mg/dL Bilirubin Total 1.9 0.0-1.0 mg/dL Aspartate Amino Transferase 28 5-37 U/L Alanine Aminotransferase 25 0-40 U/L Total Protein 6.7 6.5-8.0 g/dL Albumin Level 4.0 3.5-5.0 g/dL Alkaline Phosphatase 92 39-117 U/L Lipid Panel Reviewed date:06/10/2024 12:24:46 PM Interpretation: Performing Lab:[facility], [address] [place] [phone] Notes/Report: Triglycerides 78 <150 mg/dL Desirable Triglyceride: less than 150 mg/dL Borderline High Triglyceride 150-199 mg/dL High Triglyceride: 200-499 mg/dL Very High Triglyceride: greater than or equal to 5OO mg/dL Cholesterol 132 <200 mg/dL Desirable Cholesterol: less than 200 mg/dL Borderline High Cholesterol: 200-239 mg/dL High Cholesterol: greater than 239 mg/dL LDL Cholesterol Calculated 71 <100 mg/dL Desirable LDL: less than 100 mg/dL Near Optimal/Above Optimal LDL: 110-129 mg/dL Borderline High LDL: 130-159 mg/dL High LDL: 160-189 mg/dL Very High LDL: greater than or equal to 190 mg/dL HDL Cholesterol 46 >40 mg/dL Desirable HDL: greater than 40 mg/dL Note: This HDL assay may give artificially low results in patients with liver disease. PSA,Total (Free>4and<10) Reviewed date:06/10/2024 12:24:05 PM Interpretation: Performing Lab:[address] [phone] Notes/Report: PSA,Total (Free>4and<10) 0.37 0.00-4.00 ng/mL A Free PSA was not performed: The percentage of Free PSA can be used to enhance the differentiation of prostate cancer from benign prostatic disease in subjects whose PSA levels are between 4.0 and 10.0 ng/mL. For subjects whose PSA levels are below 4.0 or above 10.0 ng/mL, the risk of prostate cancer is determined on the basis of the PSA alone. Therefore the % Free PSA is recommended only for those subjects whose PSA levels are between 4.0 and 10.0 ng/mL. PSA methodology: Borges Alinity i Chemiluminescent Microparticle Immunoassay (CMIA) UA ClnCatch+Micro w/rflx Cul t Reviewed date:06/10/2024 05:30:27 PM Interpretation: Performing Lab:[address] [phone] Notes/Report: Urine, Clean Catch Color Urine Yellow Appearance Urine Clear PH 6.5 5.0-9.0 Glucose Urine UA Negative Negative mg/dL Urine Blood Negative Negative Specific [place] - Urine 1.020 1.005-1.025 Urine Protein Negative Neg-Trace mg/dL Urine Ketones Negative Negative mg/dL Nitrite Urine Negative Negative Leukocyte Esterase Urine Negative Negative RBC Urine 0-2 0-2 /HPF WBC Urine 0-5 0-5 /HPF Squamous Epithelial Cell Urine 0-2 0-2 /HPF Bacteria Urine None Seen None Seen Hyaline Casts Urine 0-2 0-2 /LPF Occult Blood, Stool, Guaiac Reviewed date:06/24/2024 01:15:15 PM Interpretation:Negative Performing Lab: Notes/Report: Negative Occult Blood, Stool, Guaiac Neg Complete Blood Count Auto Di ff Reviewed date:12/02/2024 02:56:23 PM Interpretation: Performing Lab:[facility], [address] [place] [phone] Notes/Report: White Blood Count 11.7 4.8-10.8 X10*3/uL Red Blood Count 5.34 4.60-5.80 X10*6/uL Hemoglobin 16.4 14.0-18.0 g/dl Hematocrit 49.0 42.0-52.0 % Mean Corpuscular Volume 91.8 80.0-98.0 fL Mean Corpuscular Hemoglobin 30.7 27.0-33.0 pg Mean Corpuscular HGB Conc 33.5 31.0-36.0 g/dl Red Cell Distribution Width 13.5 11.0-16.0 % Platelet Count 200 160-400 X10*3/uL Mean Platelet Volume 9.5 9.4-12.4 fL Neutrophils Percent Auto 59.4 45-73 % Imm Gran Pct Auto 0.3 0.0-0.4 % Lymphocytes Percent Auto 28.5 20-40 % Monocytes Percent Auto 9.4 2-11 % Eosinophils Percent Auto 2.1 0-4 % Basophils Percent Auto 0.3 0-2 % NRBC Pct Auto 0.0 0.0-0.2 /100WBC Neutrophils Absolute Auto 6.9 2.0-8.3 x10*3/u L Imm Gran Abs Auto 0.03 0.00-0.03 X10*3/uL Lymphocytes Absolute Auto 3.3 1.2-4.9 X10*3/u L Monocytes Absolute Auto 1.1 0.1-1.2 X10*3/uL Eosinophils Absolute Auto 0.2 0.0-0.4 X10*3/u L Basophils Absolute Auto 0.0 0.0-0.2 X10*3/uL NRBC Abs Auto 0.000 0.0-0.012 X10*3/uL Prothrombin Time INR Reviewed date:12/02/2024 02:55:59 PM Interpretation: Performing Lab:[facility], [address] [place] [phone] Notes/Report: Prothrombin Time 11.7 10.9-12.4 SEC INTERNATIONAL NORM RATIO 1.0 0.9-1.1 INTERNATIONAL NORMALIZED RATIO (INR) REFERENCE RANGES Reference Range For patients not on anticoagulant therapy: 0.9 - 1.1 INR ranges for oral anticoagulant therapy: For prevention and treatment of venous thrombosis and pulmonary embolism: 2.0 - 3.0 For acute myocardial infarction with aspirin therapy: 2.0 - 3.0 For acute myocardial infarction without aspirin therapy: 3.0 - 4.0 For patients with mechanical prosthetic heart valves: 2.5 - 3.5 Comprehensive Met. Panel Reviewed date:12/02/2024 02:53:17 PM Interpretation: Performing Lab:[facility], [address] [place] [phone] Notes/Report: Sodium 142 135-145 mmol/L Potassium 4.3 3.3-5.1 mmol/L Chloride 108 96-108 mmol/L Carbon Dioxide 25 22-29 mmol/L Anion Gap 13 12-20 Blood Urea Nitrogen 16 9-16 mg/dL Creatinine 0.81 0.5-1.4 mg/dL Creatinine Clr Calc Pharmacy 94.5 eGFR (calculated from the MDRD study equation) and eCrCl (calculated from the Cockcroft-Gault equation) are based on different parameters and may not yield comparable results. If eCrCl result is absurd, please check patient's height/weight. Estimated Glomerular Filt Rate > 60 Chronic Kidney Disease: Estimated GFR < 60 mL/min/1.73m2 Severe Kidney Disease: Estimated GFR < 15 mL/min/1.73m2 Glucose Random 105 60-115 mg/dL Calcium 9.5 8.4-10.2 mg/dL Bilirubin Total 1.2 0.0-1.0 mg/dL Aspartate Amino Transferase 35 5-37 U/L Alanine Aminotransferase 27 0-40 U/L Total Protein 7.8 6.5-8.0 g/dL Albumin Level 4.2 3.5-5.0 g/dL Alkaline Phosphatase 117 39-117 U/L CT cervical spine wo con Reviewed date:12/02/2024 02:49:13 PM Interpretation: Performing Lab: Notes/Report: [address] [address] [address] Scan Report Signed Patient: Gee Hill Sr MR#: [id number] 931 : 1950 Acct:[id number] Age/Sex: 74 / M ADM Date: 12/01/24 Loc: .ED Attending Dr: Ordering Physician: Sherly Arnold Date of Service: 12/01/24 Procedure(s): CT cervical spine wo IV con Accession Number(s): [id number] cc: Guillaume Puente MD; Sherly Arnold Report Number: [id number]: Total DLP = 641.16 mGy-cm CLINICAL HISTORY: fall CT cervical spine without contrast Comparison: None Findings: Normal vertebral body alignment. Moderate multilevel spondylosis with disc space narrowing, endplate sclerosis, osteophytosis, and facet arthropathy. No acute fractures or dislocations. Visualized intracranial contents are unremarkable. Soft tissues of the neck are normal. No consolidation or effusion at the lung apices. IMPRESSION: No acute findings. Moderate multilevel spondylosis. This document has been electronically signed by: Radha Robledo MD on 12/01/2024 20:50:00 Dictated By: Radha Robledo MD Signed By: <Electronically signed by Radha Robledo MD in OV> 12/01/242050 DD/ 49 TD/TT: 12/01/242049 [employer]: [address] [address] [address] Scan Report Signed Patient: Gee Hill Sr MR#: [id number] 931 : 1950 Acct:[id number] Age/Sex: 74 / M ADM Date: 12/01/24 Loc: .ED Attending Dr: Ordering Physician: Sherly Arnold Date of Service: 12/01/24 Procedure(s): CT cervical spine wo IV con Accession Number(s): [id number] cc: Guillaume Puente MD; Sherly Arnold Report Number: [id number]: Total DLP = 641.16 mGy-cm CLINICAL HISTORY: fall CT cervical spine without contrast Comparison: None Findings: Normal vertebral bod y alignment. Moderate multilevel spondylosis with disc space narrowing, endplate sclerosis, osteophytosis, and facet arthropathy. No acute fractures o r dislocations. Visualized intracran ial contents are unremarkable. Soft tissues of the neck are normal. No consolidation or effusion at the lung apices. IMPRESSION: No acute findings. Moderate multilevel spondylosis. This document has be en electronically signed by: Radha Robledo MD on 12/01/2024 20:50:00 Dictated By: Radha Robledo MD Signed By: <Electronically signed by Radha Robledo MD in OV> 12/01/242050 DD/ 49 TD/TT: 12/01/242049 Super[employer]iver[employer]: CT chest wo con Reviewed date:12/02/2024 02:48:31 PM Interpretation: Performing Lab: Notes/Report: [place] [address] CT Scan Report Signed Patient: Gee Hill MR#: [id number] 931 : 1950 Acct:[id number] Age/Sex: 74 / M ADM Date: 12/01/24 Loc: .ED Attending Dr: Ordering Physician: Sherly Arnold Date of Service: 12/01/24 Procedure(s): CT chest wo IV con Accession Number(s): [id number] cc: Guillaume Puente MD; Sherly Arnold Report Number: [id number]: Total DLP = 4887.19 mGy-cm CLINICAL HISTORY: left sided rib pain post fall CT chest without contrast Comparison: None Findings: The heart size is normal. The visualized thyroid and mediastinum are unremarkable. The lungs are clear. The upper abdomen is unremarkable. Acute nondisplaced fracture of the left lateral 6th rib. Chronic healed fractures of the right lateral 6th and 7th ribs. IMPRESSION: Acute nondisplaced fracture of the left lateral 6th rib. Chronic healed fractures of the right lateral 6th and 7th ribs. This document has been electronically signed by: Radha Robledo MD on 12/01/2024 20:58:11 Dictated By: Radha Robledo MD Signed By: <Electronically signed by Radha Robledo MD in OV> 12/01/242058 DD/ 57 TD/TT: 12/01/242057 Super[employer]: [address] [address] [address] Scan Report Signed Patient: Gee Hill Sr MR#: [id number] 931 : 1950 Acct:[id number] Age/Sex: 74 / M ADM Date: 12/01/24 Loc: .ED Attending Dr: Ordering Physician: Sherly Arnold Date of Service: 12/01/24 Procedure(s): CT luis st wo IV con Accession Number(s): [id number] cc: Guillaume Puente MD; Sherly Arnold Report Number: [id number]: Total DLP = 4887.19 mGy-cm CLINICAL HISTORY: le ft sided rib pain post fall CT chest without contrast Comparison: None Findings: The heart size is normal. The visualized thyro id and mediastinum are unremarkable. The lungs are clear. The upper abdomen is unremarkable. Acute nondisplaced fracture of the left lateral 6th rib. Chronic healed fractures of the rig ht lateral 6th and 7th ribs. IMPRESSION: Acute nondisplaced fracture of the left lateral 6th rib. Chronic healed fractures of the right lateral 6th and 7th ribs. This document has be en electronically signed by: Radha Robledo MD on 12/01/2024 20:58:11 Dictated By: Radha Robledo MD Signed By: <Electronically signed by Radha Robledo MD in OV> 12/01/242058 DD/ 57 TD/TT: 12/01/242057 Super[employer]iver[employer]: CT head/brain wo con Reviewed date:12/02/2024 02:48:01 PM Interpretation: Performing Lab: Notes/Report: [address] [address] [address] Scan Report Signed Patient: Gee Hill Sr MR#: [id number] 931 : 1950 Acct:[id number] Age/Sex: 74 / M ADM Date: 12/01/24 Loc: .ED Attending Dr: Ordering Physician: Sherly Arnold Date of Service: 12/01/24 Procedure(s): CT head/brain wo IV con Accession Number(s): [id number] cc: Guillaume Puente MD; Sherly Arnold Report Number: [id number]: Total DLP = 997.34 mGy-cm CLINICAL HISTORY: fall CT head without contrast Comparison: None Findings: No intra-axial mass, midline shift, hydrocephalus, or acute hemorrhage. No significant atrophy-like change or white matter disease. The visualized paranasal sinuses and mastoid air cells are normal. Right mastoidectomy changes The orbits are unremarkable. There is no acute fracture. IMPRESSION: 1. No acute intracranial findings specifically, no acute intracranial hemorrhage. This document has been electronically signed by: Radha Robledo MD on 12/01/2024 21:01:12 Dictated By: Radha Robledo MD Signed By: <Electronically signed by Radha Robledo MD in OV> 12/01/242101 DD/ 00 TD/TT: 12/01/242100 Super[employer]iver[employer]: [place] [address] CT Scan Report Signed Patient: Gee Hill Sr MR#: [id number] 931 : 1950 Acct:[id number] Age/Sex: 74 / M ADM Date: 12/01/24 Loc: .ED Attending Dr: Ordering Physician: Sherly Arnold Date of Service: 12/01/24 Procedure(s): CT head/brain wo IV con Accession Number(s): [id number] cc: Guillaume Puente MD; Sherly Arnold Report Number: [id number]: Total DLP = 997.34 mGy-cm CLINICAL HISTORY: fall CT head without contrast Comparison: None Findings: No intra-axial mass, midline shift, hydrocephalus, or acute hemorrhage. No significant atrophy-like change or white matter disease. The visualized paranasal sinuses and mastoid air cells are normal. Right mastoidectomy changes The orbits are unremarkable. There is no acute fracture. IMPRESSION: 1. No acute intracranial findings specifically, no acute intracranial hemorrhage. 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[employer]: Reason For Referral No Information Medications Medication SIG (Take, Route, Frequency, Duration) Notes Start Date End Date Status Aspir-Low 81 MG 1 tablet Orally Once a day for 30 day(s) Active Ezetimibe 10 MG 1 tablet Orally Once a day Active Isosorbide Mononitrate ER 30 MG 1 tablet in the morning Orally Once a day for 30 days Active Metoprolol Succinate ER 25 MG 1 tablet Orally Once a day for 30 days Active Atorvastatin Calcium 80 MG TAKE 1 TABLET BY MOUTH EVERY DAY for 90 Active Immunizations Vaccine Route Administration Date Status Comme nts Covid Vaccine Unknown 01/27/2021 Administered Moderna Fluarix Quadrivalent Unknown 08/24/2020 Administered [facility] Covid Vaccine Unknown 02/24/2021 Administered Moderna Shingrix IM Intramuscular 07/02/2021 Administered Fluarix Quadrivalent Unknown 09/01/2021 Administered Shingrix IM Intramuscular 09/28/2021 Administered SARS-COV-2 Moderna Unknown 11/30/2021 Administered Influenza High Dose IM Intramuscular 10/17/2022 Administer ed Social History Tobacco Use: Social History Observation Description Date Details (start date - stop date) Never Smoker NA - NA Tobacco Use/Smoking Question Answer Notes Patient is a nonsmoker Additional Findings: Tobacco Non-User Cu rrent non-smoker, currently using no form of tobacco Alcohol Screen Question Answer Notes Did you have a drink containing alcohol in the p ast year? No Points 0 Interpretation Negative Problems Problem Type SNOMED Code ICD Code Onset Dates Problem Status W/U Status Risk Notes Problem 358540780436086 Erectile dysfunc tion due to arterial insufficiency (N52.01) Active confirmed Problem 376065110 History of coron pia artery stent placement (Z95.5) Active confirmed Problem 50240981 Hypercholesterol emia (E78.00) Active confirmed Problem 139339004 Rheumatoid arthr itis involving multiple sites with positive rheumatoid factor (M05.79) Active confirmed Vital Signs Blood pressure diastolic 64 mm Hg 06/24/2024 mar ght is up 3 pounds since 12-21-23 Height 68 in 06/24/2024 weight is up 3 pounds since 12-21-23 Blood pressure systolic 118 mm Hg 06/24/2024 weig ht is up 3 pounds since 12-21-23 Weight 221 lbs 06/24/2024 weight is up 3 pounds since 12-21-23 BMI 33.60 kg/m2 06/24/2024 weight is up 3 pounds since 12-21-23 Encounters Encounter Location Date Provider Diagnosis Guillaume Puente MD [address] [place] [id number] 06/24/2024 Guillaume Puente Hypercholesterolemia E78.00 ; Annual physical exam Z00.00 ; Rheumatoid arthritis involving multiple sites with positive rheumatoid factor M05.79 ; Colon cancer screening Z12.11 and Depression screening Z13.31 Guillaume Puente MD [address] [place] [id number] 06/10/2024 Guillaume Puente Hypercholesterolemia E78.00 Guillaume Puente MD [address] [place] [id number] 12/20/2024 Guillaume Puente Hypercholesterolemia E78.00 Guillaume Puente MD [address] [place] [id number] 12/21/2023 Guillaume Puente Rheumatoid arthritis involving multiple sites with positive rheumatoid factor M05.79 and Hypercholesterolemia E78.00 Guillaume Puente MD [address] [place] [id number] 12/02/2024 Guillaume Puente MD [address] [place] [id number] 06/24/2024 Guillaume Puente History of coronary artery stent placement Z95.5 Assessments Encounter Date Diagnosis (ICD Code) Assessment Notes Treatment Notes Treatment Clinical Notes Section Notes 06/24/2024 Hypercholesterolemia (ICD-10 - E78.00) doing well, will continue current regiment 06/24/2024 Annual physical exam (ICD-10 - Z00.00) labs reviewed and discussed with patient 06/10/2024 Hypercholesterolemia (ICD-10 - E78.00) 12/20/2024 Hypercholesterolemia (ICD-10 - E78.00) 12/21/2023 Rheumatoid arthritis involving multiple sites with positive rheumatoid factor (ICD-10 - M05.79) although it is an unusual way to treat his arthritis 2 days of 15 mg prednisone is very safe. Patient/Caregive r verbalizes understanding of medications side effects, interactions and warnings. 12/21/2023 Hypercholesterolemia (ICD-10 - E78.00) doing great on meds 06/24/2024 History of coronary artery stent placement (ICD-10 - Z95.5) 06/24/2024 Rheumatoid arthritis involving multiple sites with positive rheumatoid factor (ICD-10 - M05.79) well controlled, will continue current regiment 06/24/2024 Colon cancer screeni ng (ICD-10 - Z12.11) guaiac negative 06/24/2024 Depression screening (ICD-10 - Z13.31) negative screen Plan Of Treatment Pending Test Test Name Order Date Liver Panel 12/20/2024 Lipid Panel with Reflex 12/20/2024 Next Appt Details Provider Name:Guillaume Jeffrey ier, 12/27/2024 09:00:00 AM, [address] [place] [address], [address], [phone], Provider Name:Guillaume Jeffrey ier, 06/19/2025 07:30:00 AM, [address] [place] [address], [address], [phone], Provider Name:Guillaumemaia Jeffrey ier, 06/26/2025 11:00:00 AM, [address] [place] [address], [address], [phone], Insurance Providers Payer Name Payer Address Payer Phone Subscriber Number Group Number Insured Name Patient Relationship to Insured Coverage Start Date Coverage End Date [employer] [facility] [address] [place] [phone] [id number] Gee Hill Self - patient is the insured MEDICARE NHIC [address] [place] [address] [id number] Gee Hill Self - patient is the insured Medical (General) History Medical History History ICD Code cad with stent. 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
--- OUTSIDE RECORDS SUMMARY | 2024-12-20 12:00 | XMS_ITS ---
Author Organization [facility] Address [address] [place] [address] Care Team Providers Care Delivery Helper Name Role Phone Guillaume Puente MD Primary Care Provider Elmo Lazar [phone] Encounters Encounter Location Date Provider Diagnosis [facility] [address] [place] [address] 09/07/2023 Elmo Chanel Plan Of Treatment No Information Progress Notes * Mathew MCKEONOB:1950 ([age] yo M)Acc No.[id number]:09/07/2023 Progress Notes Patient:Gee DOUGLAS Provider:?Elmo Chanel DPM :1950???Age:73 Y???Sex:Male Devang e:09/07/2023 Address:[phone] Pcp:Guillaume Puente MD Subjective: * Chief Complaints: * ??? * Medical History:? Objective: * Vitals:? Assessment: Plan: * Treatment: * Images: * The named appointment provid er may or may not be the originator of this progress note, and it is not deemed complete until electronically signed by the appointment provider. Sign off status: Pending * Provider:?Elmo Chanel DPM Date:? 023 Generated for Printi keren/Fajeovanyg/eTransmitting on:?12/20/2024 11:59 AM EST
--- OUTSIDE RECORDS SUMMARY | 2024-12-20 12:00 | XMS_ITS ---
Author Organization Guillaume Puente MD Address [address] [place] [address] [place] [phone] Care Team Providers Care Trap Operator Name Role Phone Guillaume Puente Primary Care Provider REASON FOR VISIT New Refill Request Medications Medication SIG (Take, Route, Frequency, Duration) Notes Start Date End Date Status Isosorbide Mononitrate ER 30 MG 1 tablet in the morning Orally Once a day for 30 days Active Metoprolol Succinate ER 25 MG 1 tablet Orally Once a day for 30 days Active Encounters Encounter Location Date Provider Diagnosis Guillaume Puente MD [address] [place] [phone] 06/24/2024 Guillaume Puente History of coronary artery stent placement Z95.5 Assessments Encounter Date Diagnosis (ICD Code) Assessment Notes Treatment Notes Treatment Clinical Notes Section Notes 06/24/2024 History of coronary artery stent placement (ICD-10 - Z95.5) Plan Of Treatment Medication Medication Name Sig Start Date Stop Date Notes Isosorbide Mononitrate ER 30 MG 1 tablet in the morning Orally Once a day for 30 days Metoprolol Succinate ER 25 MG 1 tablet O rally Once a day for 30 days Next Appt Details Provider Name:Guillaume leon, 12/27/2024 09:00:00 AM, [address] [place] [address], [address], [phone], Provider Name:Guillaume leon, 06/19/2025 07:30:00 AM, [address] [place] [address], [address], [phone], Provider Name:Guillaume Solorzano Martharichmond carolyn, 06/26/2025 11:00:00 AM, [address], [address], [place], [phone], Progress Notes * Mathew MCKEONOB:1950 ([age] yo M)Acc No.[id number]:06/24/2024 Patient:?Gee Mckeon :1950???Age:74 Y???Sex:Male Address: [place], [address] * Refills? Refill Isosorbide Mononitrate ER Tablet Extended Release 24 Hour, 30 MG, Orally, 30 Tablet, 1 tablet in the morning, Once a day, 30 days, Refills=5 Refill Metoprolol Succinate ER Tablet Extended Release 24 Hour, 25 MG, Orally, 30, 1 tablet, Once a day, 30 days, Refills=5 * true * Date:? Generated for Car veliz/Garret/eTransmitting on:?12/20/2024 12:00 PM EST
--- OUTSIDE RECORDS SUMMARY | 2024-12-20 12:00 | XMS_ITS ---
Author Organization Guillaume Puente MD Address [address] [place] [address] [place] [phone] Care Team Providers Care Bomb Squad Officer Name Role Phone Guillaume Puente Primary Care Provider [phone] REASON FOR VISIT ER Encounters Encounter Location Date Provider Diagnosis Guillaume Puente MD [address] [place] [address] [place] [address] [phone] 12/02/2024 Guillaume Puente Plan Of Treatment Next Appt Details Provider Name:Guillaume mendezr, 12/27/2024 09:00:00 AM, [address] [place] [address], [place] [address], [place], [place], [phone], Provider Name:Guillaume leon, 06/19/2025 07:30:00 AM, [address] [place] [address], [address], [phone], Provider Name:Guillaume leon, 06/26/2025 11:00:00 AM, [address] [place] [address], [address], [phone], Progress Notes * Mathew MCKEONOB:1950 ([age] yo M)Acc No.[id number]:12/02/2024 Patient:?LizAllany :1950???Age:74 Y???Sex:Male Address:[address], [address] * true * Date:? Generated for Car veliz/Garret/Niloitting on:?12/20/2024 12:00 PM EST
--- OUTSIDE RECORDS SUMMARY | 2024-12-20 12:00 | XMS_ITS | Patient Health Record ---
Author Organization [facility] Address [address] [facility] [place] [address] Care Team Providers Care Senior Contracts Administrator Name Role Phone Guillaume Puente MD Primary Care Provider Elmo Lazar Unavailable [phone] Allergies Allergen (clinical drug ingredient) Drug/Non Drug Allergy documented on EMR Reaction Allergy Type Onset Date Status sulfamethoxazole / trimethoprim Bactrim Rash Drug Allergy Active Reason For Referral No Information Medications Medication [...] Are you an other tobacco user? No Plan Of Treatment No Information Insurance Providers Payer Name Payer Address Payer Phone Subscriber Number Group Number Insured Name Patient Relationship to Insured Coverage Start Date Coverage End Date [facility] [address] [place] [address] [phone] [id number] Gee Hill Self - patient is the insured Medical (General) History Medical History History ICD Code Arthritis CAD (Cholesterol) Gall bladder problems Measles Mumps Chicken pox Surgical History Surgery Date(Month/Year) tonsillectomy 1954 mastoidectomy 1958 gall bladder 1998 intestinal surgery 1988 Stent 2019
--- OUTSIDE RECORDS SUMMARY | 2024-12-20 12:00 | XMS_ITS | Patient Health Record ---
Author Organization [facility] Address [address] [place] [address] Care Team Providers Care Data Management Consultant Name Role Phone Guillaume Puente MD Primary Care Provider Stephen Nicole Jr Unavailable [phone] ALLERGIES No Known Allergies REASON FOR REFERRAL No Information MEDICATIONS Medication SIG (Take, Route, Frequency, Duration) Notes Start Date End Date Status Isosorbide Mononitrate ER 30 MG TAKE 1 TABLET BY MOUTH DAILY Diagnosis Unavailable Oral for 90 Active Metoprolol Succinate ER 25 MG TAKE 1 TABLET BY MOUTH DAILY Oral for 90 Active Ezetimibe 10 MG Oral for 90 Ac tive MiraLax (colon prep) 17 GM/SCOOP mixed with Gatorade or Crystal Light Orally begin at 5:00 p.m. the day before the procedure for 1 day 01/23/2023 Active Aspirin 81 81 MG 1 tablet Orally Once a day for 30 day(s) 01/23/2023 Active Atorvastatin Calcium 80 MG Oral for 90 Active IMMUNIZATIONS Vaccine Route Administration Date Status Comme nts Influenza Unknown 08/31/2022 Administered SOCIAL HISTORY Tobacco Use: Social History Observation Description Date Details (start date - stop date) Never Smoker NA - NA Sex Assigned At : Social History Observation Description Sex Assigned At Unknown Tobacco Use/Smoking Question Answer Notes Patient is a nonsmoker Alcohol Screen Question Answer Notes Did you have a drink containing alcohol in the p ast year? No Points 0 Interpretation Negative PROBLEMS Problem Type ICD Code Onset Dates Problem Status W/U Status Risk SNOMED Code Notes Problem Colon cancer screening (Z12.11) Active confirmed 666166199 Problem Long-term use of aspirin therapy (Z79.82) Active confirmed 717531800 PLAN OF TREATMENT Future Test Test Name Order Date COLONOSCOPY 01/23/2023 Insurance Providers Payer Name Payer Address Payer Phone Subscriber Number Group Number Insured Name Patient Relationship to Insured Coverage Start Date Coverage End Date [facility] [address] [place], [place] [phone] [id number] LEILA MCKEON Self - patient is the insured MEDICAL (GENERAL) HISTORY Medical History History ICD Code Coronary artery disease with history of stent placement Elevated cholesterol Surgical History Surgery Date(Month/Year)
--- OUTSIDE RECORDS SUMMARY | 2024-12-20 12:00 | XMS_ITS ---
Author Organization Guillaume Puente MD Address [address] [place] [phone] Care Team Providers Care Back Closer Name Role Phone Guillaume Puente Primary Care Provider REASON FOR VISIT FASTING LIPIDS Encounters Encounter Location Date Provider Diagnosis Guillaume Puente MD [address] [place] [address] [place] [phone] 12/20/2024 Guillaume Puente Hypercholesterolemia E78.00 Assessments Encounter Date Diagnosis (ICD Code) Assessment Notes Treatment Notes Treatment Clinical Notes Section Notes 12/20/2024 Hypercholesterolemia (ICD-10 - E78.00) Plan Of Treatment Pending Test Test Name Order Date Liver Panel 12/20/2024 Lipid Panel with Reflex 12/20/2024 Next Appt Details Provider Name:Guillaume leon, 12/27/2024 09:00:00 AM, [address] [place] [address], [address], [phone], Provider Name:Guillaume leon, 06/19/2025 07:30:00 AM, [address] [place] [address], [address], [phone], Provider Name:Guillaume leon, 06/26/2025 11:00:00 AM, [address] [place] [address], [address], [phone], Progress Notes * Mathew MCKEONOB:1950 ([age] yo M)Acc No.[id number]:12/20/2024 Progress Note Patient:?Gee MCKEON Provider:?Guillaume Puente MD :1950???Age:74 Y???Sex:Male Devang e:12/20/2024 Address:[address] [facility] Subjective: * Chief Complaints: * ???1. FASTING LIPIDS. * Medical History:? Objective: * Vitals:? Assessment: * Assessment: 1.?Hypercholesterolemia - E7 8.00 (Primary)??? Plan: * Treatment: * Procedure Codes:?65942 VENIP UNCT, ROUTINE* * * The named appointment provid er may or may not be the originator of this progress note, and it is not deemed complete until electronically signed by the appointment provider. Sign off status: Pending * Provider:?Guillaume Puente MD Date:?0 12/20/2024 Generated for Car veliz/Garret/Niloitting on:?12/20/2024 12:00 PM EST
[2024-12-20 13:38] LABS: Reflex LDLD? No
== END 2024-12-20 10:56 | disposition home or self-care (01) ==
LOC: HO.LNP 10:55
PROVIDERS: Visit Provider Internal Medicine
DX: E78.00 Pure hypercholesterolemia, unspecified (principal)
CPT/HCPCS: 80061; 80076

== ENCOUNTER 2024-12-26 10:10 | Outpatient (AMB) | payer MEDICARE, SELFPAY ==
[2024-12-26 10:25] VITALS: BP 150/82; PULSE 62; BMI 32.1
--- NOTE | 2024-12-26 10:25 | MHC.OFFVIS ---
Vital Signs 12/26/24 10:25 Height 5 ft 9 in Weight 217 lb 6.012 oz BMI 32.1 BP 150/82 H Blood Pressure Location Lt brachial Position Sitting Pulse 62 Intake Visit Reasons: 1 year follow up Occupational Therapist Required: No Accompanied by: Self / Same As Patient Allergies Sulfa (Sulfonamide Antibiotics) [SULFA (SULFONAMIDE ANTIBIOTICS)] Allergy (Unknown, Verified 12/01/24 19:02) HIVES Medication List - Last Reconciled 12/26/24 by Yg Manuel MD aspirin 81 mg PO DAILY atorvastatin 80 mg PO DAILY 90 days ezetimibe 10 mg PO DAILY isosorbide mononitrate ER 30 mg PO DAILY metoprolol succinate ER 25 mg PO DAILY 90 days HPI Comments Details: Gee returns for follow up regarding coronary artery disease. History of LAD stenting. Overall, he states he is doing fine. No complaints like angina or shortness of breath or any other cardiac complaints. On appropriate medical therapy. Blood pressure is slightly on the higher side today but previously has been normal. [facility] Medical History Elevated cholesterol Sinus bradycardia Other and unspecified hyperlipidemia Essential hypertension Atherosclerotic cardiovascular disease Coronary arteriosclerosis Surgical History Hx of mastoidectomy History of cholecystectomy History of appendectomy History of tonsillectomy History of cardiac catheterization (~01/03/20) Family History (Updated 12/26/24 @ 10:36 by Ashli Fox CMA) Father No problems noted. Mother No problems noted. Sister Medical history unknown Cancer Brother Cancer Social History Alcohol intake: never Patient Tobacco Use Status: Never used Tobacco Substance Use Type: Marijuana Review of Systems Const Denies chills, Denies fatigue, Denies fever(s), Denies weight gain and Denies weight loss ENT Denies dizziness Card Denies chest pain, Denies leg edema, Denies lightheadedness, Denies palpitations, Denies dyspnea on exertion, Denies orthopnea and Denies other Resp Denies cough and Denies dyspnea on exertion GI Denies hematochezia and Denies change in stool character Musc Denies abnormal gait, Denies muscle weakness, Denies numbness, Denies radiating pain into limb and Denies tingling Neuro Denies abnormal gait, Denies dizziness, Denies numbness and Denies tingling Endo Denies fatigue and Denies palpitations Physical Exam Vital Signs: Last Vital Signs Pulse 62 12/26/24 10:25 BP 150/82 H 12/26/24 10:25 BMI result Body Mass Index 32.1 Const General: comfortable and no acute distress Orientation/consciousness: patient oriented x3 HEENT Other: Unremarkable Head: Yes normal to inspection Neck Neck: Yes normal visual inspection Chest Chest palpation & inspection: normal inspection of the chest Resp Auscultation: clear to auscultation bilaterally Cardio Palpation: normal PMI Heart sounds: S1 normal heart sound present, S2 normal heart sound present, no gallops, Murmur heart sound present systolic II/ and no rubs GI Palpation (GI): Soft to palpation Back/Spine/Pelvis Other: unremarkable Skin General skin exam: no rashes or lesions noted Neuro General: patient oriented x3 Extrem General: Yes normal to inspection Psych Mental Status: mental status grossly normal Office Procedures EKG Details: EKG with underlying sinus rhythm at 61/Min; can not exclude old inferior infarct but otherwise unremarkable[place] [address]-Kvxoutgcdzltgudvn, Complete Assessment & Plan Assessment & Plan (1) Atherosclerotic cardiovascular disease: Code(s): I25.10 - Atherosclerotic heart disease of [place] coronary artery without angina pectoris Category: Medical (2) Essential hypertension: Code(s): I10 - Essential (primary) hypertension Category: Medical (3) Other and unspecified hyperlipidemia: Code(s): E78.5 - Hyperlipidemia, unspecified Category: Medical Plan Cardiac catheterization 12/2019- mid LAD 70% stenosis, IFR positive, status post PCI; prox LAD 50% stenosis; circumflex - mild luminal irregularities; RCA- severe diffuse disease with distal subtotal occlusion and wrgw-yy-mdcch collaterals to PLV. Ramus - 70% ostial stenosis. Echocardiogram- 12/2020-normal LVEF, 60-65%; no significant valvular findings or other abnormalities. Clinically, he has got no angina. Active with no limitations. Continue aspirin, beta-blockers, long-acting nitrates, statins, Zetia. LDL levels have been variable including 60s, 70s and 80s. With regard to blood pressure, slightly high today. Advised him to do home readings and contact us. Follow-up in 1 year. He will call with any interim concerns. Orders: Orders CA echo transthoracic complete 1 Year I25.10 - Atherosclerotic heart disease of [place] coronary artery without angina pectoris Coding Level of Care Code Est Pt Level 4 (12905) Complex EM visit Add On G2211 Diagnoses Atherosclerotic cardiovascular disease I25.10 Essential hypertension I10 Other and unspecified hyperlipidemia E78.5 CPT Codes EKG - CPT: 02558-Wiwlhiohgkmfvjrdc, Complete ([id number])
--- OUTSIDE RECORDS SUMMARY | 2024-12-26 10:53 | XMS_ITS ---
Author Organization [facility] Address [address] [facility] [address] Care Team Providers Care Apn Name Role Phone Guillaume Puente MD Primary Care Provider Elmo Lazar Unavailable [phone] Allergies Allergen (clinical drug ingredient) Drug/Non Drug Allergy documented on EMR Reaction Allergy Type Onset Date Status Bactrim Rash Drug Allergy Active REASON FOR [...] 08/17/2023 Encounters Encounter Location Date Provider Diagnosis [facility] [address] [place] [address] 08/17/2023 Elmo Chanel Skin disease L98.9 ; [...] pin-point bleeding margins with sterile surgical blade (49851), silver nitrate chemocautery applied, recomm. Wartstick 40 percent Salicylic acid application under occlusion as directed Progress Notes * Mathew MCKEONOB:1950 ([age] yo M)Acc No.[id number]:08/17/2023 Progress Notes Patient:?Gee Mckeon Provider:?Elmo Chanel DPM :1950???Age:73 Y???Sex:Male Devang e:08/17/2023 [facility] [facility] [place] Pcp:Guillaume Puente MD Subjective: * Chief Complaints: [...] pin-point bleeding margins with sterile surgical blade (61545), silver nitrate chemocautery applied, recomm. Wartstick 40 percent Salicylic acid application under occlusion as directed.? * Procedure Codes:?15252 Wart Destruction, 1-14, Modifiers: XS * Follow Up:?3 Weeks * Images: * Sign off status: Completed true * Provider:?Elmo Chanel DPM Date:? 023 Generated for Printi ng/Faxing/eTransmitting on:?12/26/2024 10:53 AM EST History and Physical Notes * [...]
--- OUTSIDE RECORDS SUMMARY | 2024-12-26 10:53 | XMS_ITS ---
Author Organization [facility] Address [address] [place] [address] Care Team Providers Care Business Analytics Analyst Name Role Phone Guillaume Puente MD Primary Care Provider Elmo Lazar [phone] REASON FOR VISIT cx 09/07 Encounters Encounter Location Date Provider Diagnosis [facility] [address] [place] [address] 09/04/2023 Elmo Chanel Plan Of Treatment No Information Progress Notes * Mathew MCKEONOB:1950 ([age] yo M)Acc No.[id number]:09/04/2023 Patient:?Gee Mckeon :1950???Age:73 Y???Sex:Male Address:[address] [address] * true * Date:? Generated for Printi keren/Garret/eTransmitting on:?12/26/2024 10:53 AM EST
--- OUTSIDE RECORDS SUMMARY | 2024-12-26 10:54 | XMS_ITS ---
Author Organization [facility] Address [address] [place] [address] Care Team Providers Care Custom Home Installer Name Role Phone Guillaume Puente MD Primary Care Provider Elmo Lazar [phone] Encounters Encounter Location Date Provider Diagnosis [facility] [address] [place] [address] 09/07/2023 Elmo Chanel Plan Of Treatment No Information Progress Notes * Mathew MCKEONOB:1950 ([age] yo M)Acc No.[id number]:09/07/2023 Progress Notes Patient:Gee DOUGLAS Provider:?Elmo Chanel DPM :1950???Age:73 Y???Sex:Male Devang e:09/07/2023 Address:[address] [facility] Pcp:Guillaume Puente MD Subjective: * Chief Complaints: [...] Chanel DPM Date:? 023 Generated for Printi ng/Fajeovanyg/eTransmitting on:?12/26/2024 10:53 AM EST
--- OUTSIDE RECORDS SUMMARY | 2024-12-26 10:54 | XMS_ITS | Patient Health Record ---
Author Organization [facility] Address [address] [facility] [place] [address] Care Team Providers Care Photo Editor Name Role Phone Guillaume Puente MD Primary Care Provider Elmo Lazar Unavailable [phone] Allergies Allergen (clinical drug ingredient) Drug/Non Drug [...] Insured Coverage Start Date Coverage End Date [facility] [address] [facility] [place] [address] [id number] Gee Hill Self - patient is the insured Medical (General) History Medical History History ICD Code Arthritis CAD (Cholesterol) Gall bladder problems Measles Mumps Chicken pox Surgical History Surgery Date(Month/Year) tonsillectomy 1954 mastoidectomy 1958 gall bladder 1998 intestinal surgery 1988 Stent 2019
--- OUTSIDE RECORDS SUMMARY | 2024-12-26 10:54 | XMS_ITS | Patient Health Record ---
Author Organization [facility] Address [address] [place] [address] Care Team Providers Care Chair Trimmer Name Role Phone Guillaume Puente MD Primary Care Provider Stephen Nicole Jr Unavailable ALLERGIES No Known Allergies REASON FOR REFERRAL [...] Problem Colon cancer screening (Z12.11) Active confirmed [id number] Problem Long-term use of aspirin therapy (Z79.82) Active confirmed 457668449 PLAN OF TREATMENT Future Test Test Name Order Date COLONOSCOPY 01/23/2023 Insurance Providers Payer Name Payer Address Payer Phone Subscriber Number Group Number Insured Name Patient Relationship to Insured Coverage Start Date Coverage End Date [facility] [address] [place], [place] [phone] [id number] LEILA MCKEON Self - patient is the insured MEDICAL (GENERAL) HISTORY Medical History History ICD Code Coronary artery disease with history of stent placement Elevated cholesterol Surgical History Surgery Date(Month/Year)
--- OUTSIDE RECORDS SUMMARY | 2024-12-26 10:54 | XMS_ITS | Patient Health Record ---
Author Organization Guillaume Puente MD Address [address] [place], [place] [phone] Care Team Providers Care Site Technician Name Role Phone Guillaume Puente Primary Care Provider Allergies Allergen (clinical drug ingredient) Drug/Non Drug Allergy documented on EMR Reaction Allergy Type Onset Date Status Sulfacet-R hives Drug Allergy Active Results Component Value Reference Range Notes Complete Blood Count Auto Di ff Reviewed date:06/10/2024 12:24:29 PM Interpretation: Performing Lab:[facility], [address] [place] [phone] Notes/Report: White Blood Count 9.1 4.8-10.8 X10*3/uL [...] NRBC Abs Auto 0.000 0.0-0.012 X10*3/uL Comprehensive [place]. Panel Fa Reviewed date:06/10/2024 05:30:06 PM Interpretation: Performing Lab:[facility], [address] [place] [phone] Notes/Report: Sodium 140 135-145 mmol/L Potassium 4.4 3.3-5.1 mmol/L Chloride 108 96-108 mmol/L Carbon Dioxide 27 22-29 mmol/L Anion Gap 9 12-20 Blood Urea Nitrogen 18 9-16 mg/dL Creatinine 0.85 0.5-1.4 mg/dL Estimated Glomerular Filt Rate > 60 NOTE: For -[place] individuals, multiply the result by 1.210. Chronic [...] Panel Reviewed date:06/10/2024 12:24:46 PM Interpretation: Performing Lab:[facility], [address] [place] [phone] Notes/Report: Triglycerides 78 <150 mg/dL Desirable Triglyceride: [...] (Free>4and<10) Reviewed date:06/10/2024 12:24:05 PM Interpretation: Performing Lab:[address] [address] Notes/Report: PSA,Total (Free>4and<10) 0.37 0.00-4.00 ng/mL A [...] t Reviewed date:06/10/2024 05:30:27 PM Interpretation: Performing Lab:[address] [address] Notes/Report: Urine, Clean Catch Color Urine Yellow Appearance Urine Clear PH 6.5 5.0-9.0 Glucose Urine UA Negative Negative mg/dL Urine Blood Negative Negative Specific [place] - Urine 1.020 1.005-1.025 Urine Protein Negative [...] ff Reviewed date:12/02/2024 02:56:23 PM Interpretation: Performing Lab:[facility], [address] [place] [phone] Notes/Report: White Blood Count 11.7 4.8-10.8 X10*3/uL [...] INR Reviewed date:12/02/2024 02:55:59 PM Interpretation: Performing Lab:[facility], [address] [place] [phone] Notes/Report: Prothrombin Time 11.7 10.9-12.4 SEC INTERNATIONAL [...] Panel Reviewed date:12/02/2024 02:53:17 PM Interpretation: Performing Lab:[facility], [address] [place] [phone] Notes/Report: Sodium 142 135-145 mmol/L Potassium 4.3 [...] date:12/02/2024 02:49:13 PM Interpretation: Performing Lab: Notes/Report: [address] [address] [address] Scan Report Signed Patient: Gee Hill Sr MR#: [id number] 931 : 1950 Acct:[id number] Age/Sex: 74 / M ADM Date: 12/01/24 Loc: .ED Attending Dr: Ordering Physician: Sherly Arnold Date of Service: 12/01/24 Procedure(s): CT cervical spine wo IV con Accession Number(s): [id number] cc: Guillaume Puente MD; Sherly Arnold Report Number: [id number]: Total DLP = 641.16 mGy-cm CLINICAL HISTORY: [...] in OV> 12/01/242050 DD/ 49 TD/TT: 12/01/242049 Drywall Applicator: [address] [address] [address] Scan Report Signed Patient: Gee Hill Sr MR#: [id number] 931 : 1950 Acct:[id number] Age/Sex: 74 / M ADM Date: 12/01/24 Loc: .ED Attending Dr: Ordering Physician: Sherly Arnold Date of Service: 12/01/24 Procedure(s): CT cervical spine wo IV con Accession Number(s): [id number] cc: Guillaume Puente MD; Sherly Arnold Report Number: [id number]: Total DLP = 641.16 mGy-cm CLINICAL HISTORY: [...] in OV> 12/01/242050 DD/ 49 TD/TT: 12/01/242049 Drywall Applicator: CT chest wo con Reviewed date:12/02/2024 02:48:31 PM Interpretation: Performing Lab: Notes/Report: [place] [address] [address] Scan Report Signed Patient: Gee Hill MR#: [id number] 931 : 1950 Acct:[id number] Age/Sex: 74 / M ADM Date: 12/01/24 Loc: .ED Attending Dr: Ordering Physician: Sherly Arnold Date of Service: 12/01/24 Procedure(s): CT chest wo IV con Accession Number(s): [id number] cc: Guillaume Puente MD; Sherly Arnold Report Number: [id number]: Total DLP = 4887.19 mGy-cm CLINICAL HISTORY: [...] in OV> 12/01/242058 DD/ 57 TD/TT: 12/01/242057 Drywall Applicator: [address] [address] [address] Scan Report Signed Patient: Gee Hill Sr MR#: [id number] 931 : 1950 Acct:[id number] Age/Sex: 74 / M ADM Date: 12/01/24 Loc: .ED Attending Dr: Ordering Physician: Sherly Arnold Date of Service: 12/01/24 Procedure(s): CT l[facility] wo IV con Accession Number(s): [id number] cc: Guillaume Puente MD; Sherly Arnold Report Number: [id number]: Total DLP = 4887.19 mGy-cm CLINICAL HISTORY: [...] in OV> 12/01/242058 DD/ 57 TD/TT: 12/01/242057 Drywall Applicator: CT head/brain wo con Reviewed date:12/02/2024 02:48:01 PM Interpretation: Performing Lab: Notes/Report: [address] [address] [address] Scan Report Signed Patient: Gee Hill Sr MR#: [id number] 931 : 1950 Acct:[id number] Age/Sex: 74 / M ADM Date: 12/01/24 Loc: .ED Attending Dr: Ordering Physician: Sherly Arnold Date of Service: 12/01/24 Procedure(s): CT head/brain wo IV con Accession Number(s): [id number] cc: Guillaume Puente MD; Sherly Arnold Report Number: [id number]: Total DLP = 997.34 mGy-cm CLINICAL HISTORY: [...] in OV> 12/01/242101 DD/ 00 TD/TT: 12/01/242100 Drywall Applicator: [place] [address] [address] Scan Report Signed Patient: Gee Hill Sr MR#: [id number] 931 : 1950 Acct:[id number] Age/Sex: 74 / M ADM Date: 12/01/24 Loc: .ED Attending Dr: Ordering Physician: Sherly Arnold Date of Service: 12/01/24 Procedure(s): CT head/brain wo IV con Accession Number(s): [id number] cc: Guillaume Puente MD; Sherly Arnold Report Number: [id number]: Total DLP = 997.34 mGy-cm CLINICAL HISTORY: [...] in OV> 12/01/242101 DD/ 00 TD/TT: 12/01/242100 Drywall Applicator: Liver Panel Reviewed date:12/20/2024 02:07:12 PM Interpretation: Performing Lab:[facility], [address] [place] [address] Notes/Report: Bilirubin Total 1.2 0.0-1.0 mg/dL Bilirubin Direct 0.4 0.0-0.5 mg/dL Aspartate Amino Transferase 40 5-37 U/L Alanine Aminotransferase 30 0-40 U/L Total Protein 7.0 6.5-8.0 g/dL Albumin Level 3.6 3.5-5.0 g/dL Alkaline Phosphatase 109 39-117 U/L Lipid Panel with Reflex Reviewed date:12/20/2024 02:01:17 PM Interpretation: Performing Lab:[facility], [address] [place] [phone] Notes/Report: Triglycerides 155 <150 mg/dL Desirable Triglyceride: less than 150 mg/dL Borderline High Triglyceride 150-199 mg/dL High Triglyceride: 200-499 mg/dL Very High Triglyceride: greater than or equal to 5OO mg/dL Cholesterol 155 <200 mg/dL Desirable Cholesterol: less than 200 mg/dL Borderline High Cholesterol: 200-239 mg/dL High Cholesterol: greater than 239 mg/dL LDL Cholesterol Calculated 85 <100 mg/dL Desirable LDL: less than 100 mg/dL Near Optimal/Above Optimal LDL: 110-129 mg/dL Borderline High LDL: 130-159 mg/dL High LDL: 160-189 mg/dL Very High LDL: greater than or equal to 190 mg/dL HDL Cholesterol 39 >40 mg/dL Desirable HDL: greater than 40 mg/dL Note: This HDL assay may give artificially low results in patients with liver disease. Reason For Referral No Information Medications Medication [...] Problem Status W/U Status Risk Notes Problem 085119777862968 Erectile dysfunc tion due to arterial insufficiency (N52.01) Active confirmed Problem 633489698 History of coron pia artery stent placement (Z95.5) Active confirmed Problem 26303422 Hypercholesterol emia (E78.00) Active confirmed Problem 123766784 Rheumatoid arthr itis involving multiple sites with [...] Location Date Provider Diagnosis Guillaume Puente MD [address] [place] [phone] 06/24/2024 Guillaume Puente Hypercholesterolemia E78.00 ; Annual physical exam Z00.00 ; Rheumatoid arthritis involving multiple sites with positive rheumatoid factor M05.79 ; Colon cancer screening Z12.11 and Depression screening Z13.31 Guillaume Puente MD [address] [place] [phone] 06/10/2024 Guillaume Puente Hypercholesterolemia E78.00 Guillaume Puente MD [address] [place] [address] [place] [id number] 12/20/2024 Guillaume Puente Hypercholesterolemia E78.00 Guillaume Puente MD [address] [place] [address] [place] [phone] 12/02/2024 Guillaume Puente MD [address] [place] [id number] 06/24/2024 Guillaume Puente History of coronary artery stent placement Z95.5 Assessments Encounter Date Diagnosis (ICD Code) Assessment Notes Treatment Notes Treatment Clinical Notes Section Notes 06/24/2024 Hypercholesterolemia (ICD-10 - E78.00) doing well, will continue current regiment 06/24/2024 Annual physical exam (ICD-10 - Z00.00) labs reviewed and discussed with patient 06/10/2024 Hypercholesterolemia (ICD-10 - E78.00) 12/20/2024 Hypercholesterolemia (ICD-10 - E78.00) 06/24/2024 History of coronary artery stent placement (ICD-10 - Z95.5) 06/24/2024 Rheumatoid arthritis involving multiple sites with positive rheumatoid factor (ICD-10 - M05.79) well controlled, will continue current regiment 06/24/2024 Colon cancer screeni ng (ICD-10 - Z12.11) guaiac negative 06/24/2024 Depression screening (ICD-10 - Z13.31) negative screen Plan Of Treatment Next Appt Details Provider Name:Guillaume leon, 12/27/2024 09:00:00 AM, [address] [place] [address], [address] [place] [address], [phone], Provider Name:Guillaume Jeffrey ier, 06/19/2025 07:30:00 AM, [address] [facility], [address], [place], [phone], Provider Name:Guillaume Jeffrey ier, 06/26/2025 11:00:00 AM, [address] [facility], [address], [place], [phone], Insurance Providers Payer Name Payer Address Payer Phone Subscriber Number Group Number Insured Name Patient Relationship to Insured Coverage Start Date Coverage End Date [employer] PLAN [address] [place] [phone] [id number] Gee Hill Self - patient is the insured MEDICARE [address] [place] [address] [id number] Gee Hill Self - patient is the insured Medical (General) History Medical History History ICD Code cad with stent. 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
--- OUTSIDE RECORDS SUMMARY | 2024-12-26 10:54 | XMS_ITS ---
Author Organization Guillaume Puente MD Address [address] [facility] [address] [place] [phone] Care Team Providers Care Chain Maker Loom Control Name Role Phone Guillaume Puente Primary Care Provider REASON FOR VISIT ER Encounters Encounter Location Date Provider Diagnosis Guillaume Puente MD [address] [place] [address] [place] [phone] 12/02/2024 Guillaume Puente Plan Of Treatment Next Appt Details Provider Name:Guillaume mendezr, 12/27/2024 09:00:00 AM, [address] [place] [address], [place] [address], [place], [place], [phone], Provider Name:Guillaume leon, 06/19/2025 07:30:00 AM, [address] [place] [address], [address], [phone], Provider Name:Guillaume leon, 06/26/2025 11:00:00 AM, [address] [place] [address], [address], [phone], Progress Notes * Mathew MCKEONOB:1950 ([age] yo M)Acc No.[id number]:12/02/2024 Patient:?LizAllany :1950???Age:74 Y???Sex:Male Address:[place], [address] * true * Date:? Generated for Car veliz/Garret/Niloitting on:?12/26/2024 10:53 AM EST
--- OUTSIDE RECORDS SUMMARY | 2024-12-26 10:55 | XMS_ITS ---
Author Organization Guillaume Puente MD Address [address] [place] [address] [place] [phone] Care Team Providers Care Breaker Unit Assembler Name Role Phone Guillaume Puente Primary Care Provider [phone] REASON FOR VISIT New Refill Request Medications Medication SIG (Take, Route, Frequency, Duration) Notes Start Date End Date Status Isosorbide Mononitrate ER 30 MG 1 tablet in the morning Orally Once a day for 30 days Active Metoprolol Succinate ER 25 MG 1 tablet Orally Once a day for 30 days Active Encounters Encounter Location Date Provider Diagnosis Guillaume Puente MD [address] [place] [phone] 06/24/2024 Guillaume Puente History of coronary artery [...] Details Provider Name:Guillaume leon, 12/27/2024 09:00:00 AM, [address] [place] [address], [address], [phone], Provider Name:Guillaume leon, 06/19/2025 07:30:00 AM, [address] [place] [address], [address], [phone], Provider Name:Guillaume Solorzano Martharichmond carolyn, 06/26/2025 11:00:00 AM, [address] [facility] [address], [address], [place], [phone], Progress Notes * Mathew MCKEONOB:1950 ([age] yo M)Acc No.[id number]:06/24/2024 Patient:?Gee Mckeon :1950???Age:74 Y???Sex:Male Address: [place], [address] * Refills? Refill Isosorbide Mononitrate ER Tablet Extended Release 24 Hour, 30 MG, Orally, 30 Tablet, 1 tablet in the morning, Once a day, 30 days, Refills=5 Refill Metoprolol Succinate ER Tablet Extended Release 24 Hour, 25 MG, Orally, 30, 1 tablet, Once a day, 30 days, Refills=5 * true * Date:? Generated for Car veliz/Garret/eTransmitting on:?12/26/2024 10:54 AM EST
--- OUTSIDE RECORDS SUMMARY | 2024-12-26 10:55 | XMS_ITS ---
Author Organization Guillaume Puente MD Address [address] [phone] Care Team Providers Care Board Stacker Name Role Phone Guillaume Puente Primary Care Provider [phone] Results Component Value Reference Range Notes Liver Panel Reviewed date:12/20/2024 02:07:12 PM Interpretation: Performing Lab:[facility], [address] [place] [phone] Notes/Report: Bilirubin Total 1.2 0.0-1.0 mg/dL Bilirubin Direct 0.4 0.0-0.5 mg/dL Aspartate Amino Transferase 40 5-37 U/L Alanine Aminotransferase 30 0-40 U/L Total Protein 7.0 6.5-8.0 g/dL Albumin Level 3.6 3.5-5.0 g/dL Alkaline Phosphatase 109 39-117 U/L Lipid Panel with Reflex Reviewed date:12/20/2024 02:01:17 PM Interpretation: Performing Lab:[facility], [address] [place] [phone] Notes/Report: Triglycerides 155 <150 mg/dL Desirable Triglyceride: [...] low results in patients with liver disease. REASON FOR VISIT FASTING LIPIDS Encounters Encounter Location Date Provider Diagnosis Guillaume Puente MD [address] [place] [address] [place] [phone] 12/20/2024 Guillaume Puente Hypercholesterolemia E78.00 Assessments Encounter Date Diagnosis (ICD Code) Assessment Notes Treatment Notes Treatment Clinical Notes Section Notes 12/20/2024 Hypercholesterolemia (ICD-10 - E78.00) Plan Of Treatment Next Appt Details Provider Name:Guillaume leon, 12/27/2024 09:00:00 AM, [address] [place] [address], [address], [phone], Provider Name:Guillaume leon, 06/19/2025 07:30:00 AM, [address] [place] [address], [address], [phone], Provider Name:Guillaume leon, 06/26/2025 11:00:00 AM, [address] [place] [address], [place] [address], , [phone], Progress Notes * Mathew MCKEONOB:1950 ([age] yo M)Acc No.[id number]:12/20/2024 Progress Note Patient:?Gee MCKEON Provider:?Guillaume Puente MD :1950???Age:74 Y???Sex:Male Devang e:12/20/2024 Address: [id number] Subjective: * Chief Complaints: * ???1. FASTING LIPIDS. * Medical History:? Objective: * Vitals:? Assessment: * Assessment: 1.?Hypercholesterolemia - E7 8.00 (Primary)??? Plan: * Treatment: * Procedure Codes:?81627 VENIP UNCT, ROUTINE* * * The named appointment provid er may or may not be the originator of this progress note, and it is not deemed complete until electronically signed by the appointment provider. Sign off status: Pending * Provider:?Guillaume Puente MD Date:?0 12/20/2024 Generated for Car veliz/Garret/Nancy on:?12/26/2024 10:54 AM EST
== END 2024-12-26 11:00 | disposition home or self-care (01) ==
PROVIDERS: PCP Internal Medicine; Visit Provider Internal Medicine
DX: I25.10 Atherosclerotic heart disease of native coronary artery without angina pectoris (principal); I10 Essential (primary) hypertension; E78.5 Hyperlipidemia, unspecified
CPT/HCPCS: 93010; 99214; G2211

== ENCOUNTER → 2024-12-26 10:10 | Outpatient (BNVA) | payer MEDICARE, SELFPAY | PROVIDERS: PCP Internal Medicine; Visit Provider Internal Medicine | DX: I25.10 Atherosclerotic heart disease of native coronary artery without angina pectoris (principal); I10 Essential (primary) hypertension; E78.5 Hyperlipidemia, unspecified; R94.31 Abnormal electrocardiogram [ECG] [EKG] | CPT/HCPCS: 93005; 99212 ==

== ENCOUNTER 2025-06-19 11:15 | Outpatient (REF) | payer MEDICARE, SELFPAY ==
--- OUTSIDE RECORDS SUMMARY | 2025-06-19 03:30 | XMS_ITS ---
Author Organization Guillaume Puente MD Address [address] [place], [place] [phone] Care Team Providers Care Associate Professor Of Biology Name Role Phone Guillaume Puente Primary Care Provider [phone] Results Component Value Reference Range Notes Complete Blood Count Auto Di ff (Not yet reviewed by provider) Interpretation: Performing Lab:[facility], [address] [place] [phone] Notes/Report: White Blood Count 9.9 4.8-10.8 X10*3/uL Red Blood Count 5.11 4.60-5.80 X10*6/uL Hemoglobin 15.4 14.0-18.0 g/dl Hematocrit 46.2 42.0-52.0 % Mean Corpuscular Volume 90.4 80.0-98.0 fL Mean Corpuscular Hemoglobin 30.1 27.0-33.0 pg Mean Corpuscular HGB Conc 33.3 31.0-36.0 g/dl Red Cell Distribution Width 14.1 11.0-16.0 % Platelet Count 195 160-400 X10*3/uL Mean Platelet Volume 11.0 9.4-12.4 fL Neutrophils Percent Auto 51.1 45-73 % Imm Gran Pct Auto 0.3 0.0-0.4 % Lymphocytes Percent Auto 34.5 20-40 % Monocytes Percent Auto 11.1 2-11 % Eosinophils Percent Auto 2.7 0-4 % Basophils Percent Auto 0.3 0-2 % NRBC Pct Auto 0.0 0.0-0.2 /100WBC Neutrophils Absolute Auto 5.0 2.0-8.3 x10*3/u L Imm Gran Abs Auto 0.03 0.00-0.03 X10*3/uL Lymphocytes Absolute Auto 3.4 1.2-4.9 X10*3/u L Monocytes Absolute Auto 1.1 0.1-1.2 X10*3/uL Eosinophils Absolute Auto 0.3 0.0-0.4 X10*3/u L Basophils Absolute Auto 0.0 0.0-0.2 X10*3/uL NRBC Abs Auto 0.000 0.0-0.012 X10*3/uL UA ClnCatch+Micro w/rflx Cul t (Not yet reviewed by provider) Interpretation: Performing Lab:[facility], [address] [place] [phone] Notes/Report: Urine, Clean Catch Color Urine Yellow Appearance Urine Clear PH 6.0 5.0-9.0 Glucose Urine UA Negative Negative mg/dL Urine Blood Negative Negative Specific [place] - Urine 1.020 1.005-1.025 Urine Protein Negative Neg-Trace mg/dL Urine Ketones Negative Negative mg/dL Nitrite Urine Negative Negative Leukocyte Esterase Urine Negative Negative RBC Urine 0-2 0-2 /HPF WBC Urine 0-5 0-5 /HPF Squamous Epithelial Cell Urine 0-2 0-2 /HPF Bacteria Urine None Seen None Seen Hyaline Casts Urine 0-2 0-2 /LPF REASON FOR VISIT FASTING LABS Encounters Encounter Location Date Provider Diagnosis Guillaume Puente MD [address] [place] [address] [address] [place], [place] [phone] 06/19/2025 Guillaume Puente Blood tests for rout ine general physical examination Z00.00 and Hypercholesterolemia E78.00 Assessments Encounter Date Diagnosis (ICD Code) Assessment Notes Treatment Notes Treatment Clinical Notes Section Notes 06/19/2025 Blood tests for rout ine general physical examination (ICD-10 - Z00.00) 06/19/2025 Hypercholesterolemia (ICD-10 - E78.00) Plan Of Treatment Pending Test Test Name Order Date Complete Blood Count Auto Diff 5 Comprehensive [place]. Panel Fast 5 Lipid Panel 06/19/2025 PSA,Total (Free>4and<10) 06/19/2025 UA ClnCatch+Micro w/rflx Cult 06/19/2025 Next Appt Details Provider Name:Guillaume Jeffrey ier, 06/26/2025 11:00:00 AM, [address], [address], [place], [place], [phone], Progress Notes * Mathew MCKEONOB:1950 ([age] yo M)Acc No.[id number]:06/19/2025 Progress Note Patient: Gee CAMARENA Provider: Quyen Puente MD :1950 A ge:75 Y S ex:Male Date:06/19/2025 Address: [address], [id number] Subjective: * Chief Complaints: * 1 . FASTING LABS. * Medical History: Objective: * Vitals: Assessment: * Assessment: 1. B lood tests for routine general physical examination - Z00.00 (Primary) 2 .?Hypercholesterolemia - E78.00 Plan: * Treatment: 2. H ypercholesterolemia L AB: Complete Blood Count Auto Diff (Collection Date & Time - 06/19/2025 07:30 AM) L AB: Comprehensive [place]. Panel Fast L AB: Lipid Panel L AB: PSA,Total (Free>4and<10) L AB: UA ClnCatch+Micro w/rflx Cult (Collection Date & Time - 06/19/2025 07:30 AM) * Procedure Codes: 3 6415 VENIPUNCT, ROUTINE* * * The named appointment provid er may or may not be the originator of this progress note, and it is not deemed complete until electronically signed by the appointment provider. Sign off status: Pending * Provider: Quyen Puente MD Date: 0 06/19/2025 Generated for Car veliz/Garret/eTransmitting on: 06/19/2025 11:56 AM EDT
[2025-06-19 11:19] LABS: MANUAL DIFF FLAG NO
[2025-06-19 11:31] LABS: Hematocrit 46.2 % (42.0-52.0); Hemoglobin 15.4 g/dl (14.0-18.0); Imm Gran Abs Auto 0.03 X10*3/uL (0.00-0.03); Imm Gran Pct Auto 0.3 % (0.0-0.4); Lymphocytes Absolute Auto 3.4 X10*3/uL (1.2-4.9); Mean Corpuscular HGB Conc 33.3 g/dl (31.0-36.0); Mean Corpuscular Hemoglobin 30.1 pg (27.0-33.0); Mean Corpuscular Volume 90.4 fL (80.0-98.0); NRBC Abs Auto 0.000 X10*3/uL (0.0-0.012); NRBC Pct Auto 0.0 /100WBC (0.0-0.2); Platelet Count 195 X10*3/uL (160-400); Red Blood Count 5.11 X10*6/uL (4.60-5.80); White Blood Count 9.9 X10*3/uL (4.8-10.8)
[2025-06-19 11:32] LABS: Appearance Urine Clear; Glucose Urine UA Negative (Negative); PH 6.0 (5.0-9.0); Specific Gravity - Urine 1.020 (1.005-1.025)
--- OUTSIDE RECORDS SUMMARY | 2025-06-19 11:56 | XMS_ITS | Clinical Summary ---
Author Organization [facility] Address [address] [facility] [address] [place] [phone] Phone Care Team Providers Care Clinical Services Manager Name Role Phone Oswaldo Puente MD Primary Care Provid er Allergies Active Allergy Reactions Criticality Noted Date Comments Sulfa (Sulfonamide Antibiotics) 07/15 Medications atorvastatin (LIPITOR) 80 MG tablet Take 1 tablet by mouth every morning. 07/11/2024 Active ezetimibe (ZETIA) 10 mg tablet Take 1 tablet by mouth every morning. 07/12/2024 Active isosorbide mononitrate (IMDUR) 30 MG 24 hr tablet TAKE 1 TABLET BY MOUTH ONCE DAILY EVERY MORNING 07/12/2024 Active metoprolol succinate (TOPROL-XL) 25 MG 24 hr tablet Take 1 tablet by mouth every morning. 07/12/2024 Active Active Problems No known active problems Immunizations Immunization Administration Dates Next Due Tdap 08/09/2024 Social History Tobacco Use Types Packs/Day Years Used Date Smoking Tobacco: Never Smokeless Tobacco: Never Education Answer Date Recorded Are you interested in more education? Not on harinder e 08/09/2024 Are you concerned about learning? Not on file 08/09/2024 No 08/09/2024 No 08/09/2024 Digital Access Answer Date Recorded No 08/09/2024 No 08/09/2024 Reliable internet access at home? Not on file 08/09/2024 Device with a working camera? Not on file Sex and Gender Information Value Date Recorded Sex Assigned at Not on file Legal Sex Male 10:01 PM EDT Gender Identity Not on file Sexual Orientation Not on file Last Filed Vital Signs Vital Sign Reading Time Taken Comments Blood Pressure 125/80 08/09/2024 11:20 AM EDT Pulse 60 08/09/2024 11:20 AM EDT Temperature 36.7 C (98.1 F) 08/09/2024 11:20 AM EDT Respiratory Rate 16 08/09/2024 11:20 AM EDT Oxygen Saturation 97% 08/09/2024 11:20 AM EDT Inhaled Oxygen Concentration - - Weight - - Height - - Body Mass Index - - Plan of Treatment Upcoming Encounters Date Type Department Care Team (Late st Contact Info) Description 03/11/2026 10:10 AM EDT Office Visit [facility] Rheumatology [address] [place] [address] Annetta Banegas MD, MPH [address] [facility], [address] [place] [address] .[employer] [facility] Maintenance Due Date Last Done Comments LIPID PANEL 1951 DEPRESSION SCREENING 1963 HEPATITIS C SCREENING 1969 COLOGUARD 1996 COLONOSCOPY 1996 COLORECTAL CANCER SCREENING 1996 FIT TEST 1996 FOBT 1996 SIGMOIDOSCOPY 1996 VIRTUAL COLONOSCOPY 1996 PNEUMOCOCCAL VACCINES (50+ y ears) (1 of 1 - PCV) 2001 ZOSTER VACCINES (1 of 2) 2001 COVID-19 VACCINE ( - 2023-2 5 season) 2024 RSV VACCINE (1 - 1-dose 75+ series) 2026 Adult Td,Tdap Booster 08/09/2034 08/09/2024 SMOKING STATUS SCREENING (On ce After 26 Yrs) Completed 08/09/2024 HEPATITIS A VACCINES Aged Out No long er eligible based on patient's age to complete this topic HIB VACCINES Aged Out No longer eligi ble based on patient's age to complete this topic MENINGOCOCCAL VACCINES (ACWY) Aged Out No longer eligible based on patient's age to complete this topic MENINGOCOCCAL VACCINES (B) Aged Out N o longer eligible based on patient's age to complete this topic Medical Devices Not on file Insurance [facility] MEDICARE HMO REPLACEMENT MEDICARE PART A & [place] [employer] [place] RE[place]AC[place] MEDICARE PART A & [place] [employer] [place] [employer] H[place] RE[place]ACEMENT MEDICARE PART A & B [facility] MEDIC[facility] HMO REPLACEMENT MEDICARE PART A & B [facility] MEDICARE HMO REPLACEMENT MEDICARE PART A & B [facility] MEDICARE HMO REPLACEMENT MEDICARE PART A & B Care Teams Clinical Services Manager Relationship Specialty Start Date End Date Oswaldo Puente MD [address] [place] [address] PCP - General Occupational Medicine 08/09/24 Additional Source Comments The information contained in this document represents components of the legal health record. It is not the complete legal health record.[facility]
--- OUTSIDE RECORDS SUMMARY | 2025-06-19 11:56 | XMS_ITS | Patient Health Record ---
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 Role Phone Guillaume Puente MD Primary Care Provider Elmo Lazar Unavailable [phone] Allergies Allergen (clinical drug ingredient) Drug/Non Drug Allergy documented on EMR Reaction Allergy Type Onset Date Status sulfamethoxazole / trimethoprim Bactrim Rash Drug Allergy Active Reason For Referral No Information Medications Medication SIG (Take, Route, Frequency, Duration) Notes Start Date End Date Status Aspirin 81 MG 1 tablet Orally Once a day; Duration: 30 day(s) 06/19/2023 Active Isosorbide Mononitrate ER 30 MG TAKE 1 TABLET BY MOUTH DAILY Oral; Duration: 90 Days Active Metoprolol Succinate ER 25 MG TAKE 1 TABLET BY MOUTH DAILY Oral; Duration: 90 Days Active Ezetimibe 10 MG Oral; Duration: 90 Days Active Atorvastatin Calcium 80 MG TAKE 1 TABLET BY MOUTH EVERY DAY Oral; Duration: 90 Days Active Social History Tobacco Use: [...] Insured Coverage Start Date Coverage End Date [facility] [address] [place] [address] [id number] [place] Self - patient is the insured Medical (General) History Medical History History ICD Code Arthritis CAD (Cholesterol) Gall bladder problems Measles Mumps Chicken pox Surgical History Surgery Date(Month/Year) tonsillectomy 1954 mastoidectomy 1958 gall bladder 1997 intestinal surgery 1988 Stent 2020
--- OUTSIDE RECORDS SUMMARY | 2025-06-19 11:57 | XMS_ITS | Patient Health Record ---
Author Organization 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 Name Role Phone Guillaume Puente MD Primary Care Provider Stephen Nicole Jr Unavailable Allergies No Known Allergies Reason For Referral No Information Medications Medication [...] Calcium 80 MG Oral for 90 Active Immunizations Vaccine Route Administration Date Status Comme nts Influenza Unknown 08/31/2022 Administered Social History Tobacco Use: Social History Observation [...] Problem Status W/U Status Risk Notes Problem 846988495 Colon cancer screening (Z12.11) Active confirmed Problem 598626110 Long-term use of aspirin therapy (Z79.82) Active confirmed Plan Of Treatment Future Test Test Name Order Date COLONOSCOPY 01/23/2023 Insurance Providers Payer Name Payer Address Payer Phone Subscriber Number Group Number Insured Name Patient Relationship to Insured Coverage Start Date Coverage End Date [facility] [address] [place] [phone] [id number] LEILA MCKEON Self - patient is the insured Medical (General) History Medical History History ICD Code Coronary artery disease with history of stent placement Elevated cholesterol Surgical History Surgery Date(Month/Year)
[2025-06-19 12:01] LABS: Alanine Aminotransferase 28 U/L (0-40); Albumin Level 4.1 g/dL (3.5-5.0); Alkaline Phosphatase 101 U/L (39-117); Anion Gap 12 (12-20); Aspartate Amino Transferase 34 U/L (5-37); Blood Urea Nitrogen 24 mg/dL (9-16); Calcium 9.0 mg/dL (8.4-10.2); Carbon Dioxide 27 mmol/L (22-29); Chloride 107 mmol/L (96-108); Cholesterol 136 mg/dL (<200); Estimated Glomerular Filt Rate > 60; HDL Cholesterol 40 mg/dL (>40); Potassium 4.2 mmol/L (3.3-5.1); Sodium 142 mmol/L (135-145); Total Protein 6.8 g/dL (6.5-8.0); Triglycerides 110 mg/dL (<150)
[2025-06-19 12:10] LABS: PSA,Total (Free>4and<10) 0.27 ng/mL (0.00-4.00)
== END 2025-06-19 11:16 | disposition home or self-care (01) ==
LOC: HO.LNP 11:15
PROVIDERS: Visit Provider Internal Medicine
DX: Z00.00 Encounter for general adult medical examination without abnormal findings (principal); E78.00 Pure hypercholesterolemia, unspecified; Z12.5 Encounter for screening for malignant neoplasm of prostate
CPT/HCPCS: 80053; 80061; 81001; 84153; 85025

== ENCOUNTER 2025-08-22 12:23 | Outpatient (REF) | payer MEDICARE, SELFPAY ==
[2025-08-22 20:10] LABS: Blood Urea Nitrogen 14 mg/dL (9-16); Estimated Glomerular Filt Rate > 60
== END 2025-08-22 12:24 | disposition home or self-care (01) ==
LOC: HO.LNP 12:23
PROVIDERS: Visit Provider Internal Medicine
DX: M05.79 Rheumatoid arthritis with rheumatoid factor of multiple sites without organ or systems involvement (principal)
CPT/HCPCS: 82565; 84520